=== PATIENT | female | born 1980 | race Caucasian/White ===

== ENCOUNTER 2020-04-08 15:15 | Outpatient (RCR) | payer OTHER, SELFPAY ==
--- NOTE | 2020-03-09 16:33 | PTOPEVAL ---
INITIAL PHYSICAL THERAPY EVALUATION and PLAN OF CARE Thank you for referring Leilani Mark to [facility]. She will be seen in PT 2x/wk x 4 wks. Please review, sign, date and return this plan of care BENITO. I agree with and certify that the following plan of care is medically necessary. Referring Physician Date Admitting Provider: Attending Provider: Barb Fonseca, Referring Provider: *PT Outpatient Evaluation Start: 03/09/20 14:43 Freq: Status: Active Protocol: Document 03/09/20 14:35 RACHID (Rec: 03/09/20 16:17 RACHID [id number]) Therapy Assessment Status Assessment Status Assessment Status Evaluation Outpatient Past Medical History Past Medical History Source of Past Medical History Patient Neurological History Hx Neurological Disorders No Significant History Cardiovascular History Hx Cardiac Disorders No Significant History Respiratory History Hx Respiratory Disorders No Significant History Gastrointestinal History Hx Hernia Yes: Repair - 1999 Genitourinary History Hx Genitourinary Disorders No Significant History Musculoskeletal History Hx Back Pain Yes: upper back, lower back Hematological History Hx Hematological Disorders No Significant History Endocrine History Hx Hypothyroidism Yes Psychosocial History Hx Anxiety Yes Evaluation Information Problem Diagnosis back pain Onset ~ 5 years ago Subjective Information Job - 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 2 years ago - Family moved into a new house - temprapedic bed Wakes up in morning - upper back feels locked - did purchase brace for upper trunk extension - does help - sleeps with it. Once upper back decreased in pain - then lower back began to bother her. Will limit her walking ability. Does have a massage chair - but uses it for trunk extension. Able to fall asleep okay - just doesn' t feel well in the morning. 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 Sits in front of the computer x 10 hrs /days - doesn't really take breaks R handed - has 2 screens on computer - mildly set off to the R side Diagnostic Tests X-Rays For This Problem
--- NOTE | 2020-04-08 17:01 | PTOPEVAL ---
PHYSICAL THERAPY DISCHARGE SUMMARY Thank you for referring Leilani Mark to [facility] [place][Note 2]. She was seen for a total of 9 visits. All goals were met. I agree with Leilani's discharge from PT. Referring Physician Date Admitting Provider: Attending Provider: Barb Fonseca, Referring Provider: *PT Outpatient Evaluation Start: 03/09/20 14:43 Freq: Status: Active Protocol: Document 04/08/20 15:35 RACHID (Rec: 04/08/20 16:59 RACHID [email or web address]) Therapy Assessment Status Assessment Status Assessment Status Discharge Evaluation Information Problem Subjective Information Leilani reports that if she Query Text:As Reported By Patient/ wakes up with back pain she Family will use the foam roller to ease it off. She stated that she hasn't done her HEP the past few days - but feeling good. Now having some R upper cervical discomfort - mother- in-law has been massaging it for her. She continues to use ther ex ball for desk chair and watching her ergonomics with work activities. She was asking about more difficult exercises for La[place] ball and foam roller. Pain Assessment Timing of Pain Assessment Timing of Pain Assessment Assessment Pain Scale Pain Scale Used Numeric (1 - 10) Self Report Pain Assessment Lower Posterior Back Reported Pain Level 0 Lowest Pain Intensity 0 Greatest Pain Intensity 0 Upper Posterior Back Reported Pain Level 1 Lowest Pain Intensity 0 Greatest Pain Intensity 1 Pain Score Pain Score 0,1: Self Report Cervical and Lumbar ROM Cervical ROM Cervical ROM WNL Lumbar ROM Lumbar ROM WNL Palpation Assessment Palpation Palpation in standing - increased symmetry with pelvis and shoulders. WNL for spinal curves. Negative SIJ testing. in prone - sacral, lumbar and thoracic symmetry present - P- A mob - no tenderness at sacrum and lumbar spine. Thoracic spine - mild decreased motion T5,6,7 - mild discomfort also present Thoracic pass
== END 2020-05-24 12:43 | disposition home or self-care (01) ==
LOC: ANHPT 15:15
PROVIDERS: PCP Internal Medicine; Visit Provider Internal Medicine
DX: G89.29 Other chronic pain (principal)
CPT/HCPCS: 97110; 97140; 97161

== ENCOUNTER 2020-09-29 09:11 | Outpatient (CLI) | payer OTHER, SELFPAY ==
--- NOTE | ~2020-09-29 | US_ITS ---
EXAMINATION: US venous doppler LE BI EXAM DATE: 09/29/2020 10:20 INDICATION: Symptomatic varicose veins BLE, venous insufficiency. TECHNIQUE: Multiple grayscale, color flow and Doppler images of the lower extremity venous systems bi laterally were obtained and reviewed. Saphenous venous mapping. The exam was reviewed on 09/29/2020. There is no prior study for comparison. FINDINGS: Right side: The right common femoral, femoral and profunda veins demonstrate normal color flow, respi ratory variation, augmentation and compressibility. Compressibility, color flow confirmed within the right popliteal, posterior tibial, peroneal, and greater saphenous veins. Right Standing Venous Mapping: reflux seconds duration; vein size. Greater saphenous origin: 0 seconds; 2.4 mm. Greater saphenous mid thigh:------ 0 seconds; 3.4 mm. Greater saphenous below knee:--- 0 seconds; 2.0 mm. Lesser saphenous proximally:------ 0 seconds; 2.6 mm. Lesser saphenous distally: Greater than 5 seconds; 1.8 mm. Left side: The left common femoral, femoral and profunda veins demonstrate normal color flow, respira tory variation, augmentation and compressibility. Compressibility, color flow confirmed within the l eft popliteal, posterior tibial, peroneal, and greater saphenous veins. Left Standing Venous Mapping: reflux seconds duration; vein size. Greater saphenous origin: 1 second; 3.7 mm. Greater saphenous mid thigh:------ 0 seconds; 4.6 mm. Greater saphenous below knee:--- 4 seconds; 3.2 mm. Lesser saphenous proximally:------ 0 seconds; 2.2 mm. Lesser saphenous distally: Greater than 5 seconds; 2.8 mm. IMPRESSION: 1. No lower extremity deep venous thrombosis bilaterally. 2. Bilateral venous reflux as above. Reviewed, dictated and finalized at location A. PTIONIST SCHEDULER
== END 2020-09-29 09:12 | disposition home or self-care (01) ==
PROVIDERS: PCP Internal Medicine
DX: I87.2 Venous insufficiency (chronic) (peripheral) (principal)
CPT/HCPCS: 93970

== ENCOUNTER 2022-05-24 12:15 | Outpatient (CLI) | payer OTHER, SELFPAY ==
--- NOTE | ~2022-05-24 | MMUS_ITS ---
EXAMINATION: MM diagnostic tianna BI w el, US breast BI limited HISTORY: Palpable lump in the far outer right breast at the 9:00 location. TECHNIQUE: Craniocaudal, mediolateral, and mediolateral oblique 3-D tomosynthesis images of the [place] ts were performed and synthetic 2-D images were generated. CAD analysis was submitted and interpreted . High resolution limited bilateral breast ultrasound was performed. COMPARISON: None, baseline BREAST PARENCHYMAL COMPOSITION: The breasts are extremely dense, which lowers the sensitivity of mamm ography. FINDINGS: MAMMOGRAPHIC FINDINGS: There is no suspicious mass, calcification, or architectural distortion in either breast to suggest malignancy. An asymmetry of the inner left breast on craniocaudal view does not persist with spot com pression. No mammographic correlate is identified for the reported palpable abnormality of the right breast. ULTRASOUND: There is no evidence of focal abnormal solid or cystic mass in the vicinity of the reported palpable abnormality of the right breast. No suspicious cystic or solid mass is identified with limited ultras ound of the inner left breast. IMPRESSION: 1. No specific mammographic or sonographic correlate is identified for the reported palpable abnormal ity of concern. Further evaluation at this time should be based on clinical assessment. Continued fol low-up physical examination is recommended. 2. Recommend routine screening mammography in one year. BI-RADS Category 1: Negative Reviewed, dictated and finalized at location A. IMPRESSION: 1. No specific mammographic or sonographic correlate is identified for the repo rted palpable abnormality of concern. Further evaluation at this time should be based on clinical assessment. Continued follow-up physical examination is florentino mmended. 2. Recommend routine screening mammography in one year. BI-RADS Category 1: Negative
== END 2022-05-24 12:16 | disposition home or self-care (01) ==
PROVIDERS: PCP Internal Medicine; Visit Provider Nurse Practitioner Obstetrics & Gynecology
DX: N63.10 Unspecified lump in the right breast, unspecified quadrant (principal)
CPT/HCPCS: 76642; 77062; 77066; G0279

== ENCOUNTER 2023-01-26 15:53 | Outpatient (CLI) | payer OTHER, SELFPAY ==
--- NOTE | ~2023-01-26 | US_ITS ---
EXAMINATION: US soft tissue groin RT INDICATION: Right groin lump, concern for hernia TECHNIQUE: Targeted ultrasound is performed in the area of clinical concern. COMPARISON: None available FINDINGS: No sonographically detected inguinal hernia is identified. There are normal-appearing right inguinal lymph nodes. IMPRESSION: 1. No sonographically detected inguinal hernia. Reviewed, dictated and finalized at location F.
== END 2023-01-26 15:54 | disposition home or self-care (01) ==
PROVIDERS: PCP Internal Medicine; Visit Provider Internal Medicine
DX: K40.90 Unilateral inguinal hernia, without obstruction or gangrene, not specified as recurrent (principal)
CPT/HCPCS: 76882

== ENCOUNTER 2023-07-25 10:31 | Outpatient (CLI) | payer OTHER, SELFPAY ==
--- NOTE | ~2023-07-25 | MM_ITS ---
EXAMINATION: MM screening tianna BI w el HISTORY: Screening mammogram TECHNIQUE: Craniocaudal and mediolateral oblique 3-D tomosynthesis images were obtained and synthetic 2-D images were generated. Bilateral rotated lateral CC views. CAD analysis was submitted and interp reted. COMPARISON: 05/24/2022 diagnostic bilateral mammogram and Limited bilateral breast ultrasound examinat ion BREAST PARENCHYMAL COMPOSITION: The breasts are extremely dense, which lowers the sensitivity of mamm ography. FINDINGS: There is no evidence of suspicious mass, calcification, or architectural distortion to sugg est malignancy in either breast. There has been no suspicious interval change. IMPRESSION: 1. No mammographic evidence of malignancy. 2. Recommend routine screening mammography in one year. BI-RADS Category 1: Negative Reviewed, dictated and finalized at location A.
== END 2023-07-25 10:32 | disposition home or self-care (01) ==
LOC: ANHIMG 10:35
PROVIDERS: PCP Internal Medicine; Visit Provider Nurse Practitioner Obstetrics & Gynecology
DX: Z12.31 Encounter for screening mammogram for malignant neoplasm of breast (principal)
CPT/HCPCS: 77063; 77067

== ENCOUNTER 2025-01-14 08:36 | Outpatient (CLI) | payer OTHER, SELFPAY ==
--- NOTE | ~2025-01-14 | MM_ITS ---
EXAMINATION: MM screening tianna BI w el HISTORY: Screening TECHNIQUE: Craniocaudal and mediolateral oblique 3-D tomosynthesis images were obtained and synthetic 2-D images were generated. CAD analysis was submitted and interpreted. COMPARISON: Comparison to multiple prior studies sequentially, with oldest reviewed study dated 05/24. BREAST PARENCHYMAL COMPOSITION: Dense: The breasts are extremely dense, which lowers the sensitivity of mammography. FINDINGS: There is no evidence of suspicious mass, calcification, or architectural distortion to sugg est malignancy in either breast. There has been no suspicious interval change. IMPRESSION: 1. No mammographic evidence of malignancy. 2. Recommend routine screening mammography in one year. BI-RADS Category 1: Negative Reviewed, dictated and finalized at location A.
--- OUTSIDE RECORDS SUMMARY | 2025-01-14 08:59 | XMS_ITS | Data Portability ---
Author Organization [facility] [place] Address [address] [facility] [place] [address] Care Team Providers Care Sprayer Insecticide Name Role Phone BARB GERMAN Primary Care Provider Assessment No assessment recorded. Plan of Treatment Reminders Order Date Submit Date Provider Last Modified By Organization Details Last Modified Time Details Appointments ANY 15 2024 02:30P M ADRIANA STINSON, AUTO OVERHAULER-FREDI Not available Not available Not available Lab TSH, ultra-sen sitive, serum 2022 023 [facility], [address] [place] [address], [facility], [place], [address], 01/10/2023 04:17:40 CMP, serum or plasma 2022 023 [facility], [address] [facility], [facility], [place], [address], 01/10/2023 03:08:57 lipid panel, serum 2022 023 [facility], [address] [facility], [facility], [place], [address], 01/10/2023 03:08:57 CBC w/ auto diff 2022 023 [facility], [address] [facility], [facility], [place], [address], 01/10/2023 03:08:58 HbA1c (hemoglob in A1c), blood 2022 023 [facility], [address] [facility], [address], [place], [address], 01/10/2023 04:17:40 Referral vein specialis t referral 2023 024 [facility], [address], [address], [place], [address], 01/14/2024 12:19:25 vein specialis t referral - Please call pt to schedule appointme nt, Thank you 2020 021 paco Keys MD, [address] [facility], [address], [place], [address], 04/19/2021 16:18:00 vein specialis t referral - Please call patient to schedule - Thank you 2019 020 [facility], [address], [place], [address], 09/20/2020 15:22:34 Procedures None recorded. Surgeries None recorded. Imaging US, groin - SOFT TISSUE GROIN U/S 2022 023 [facility] (Imaging), [address] [facility] [address], [place], [address], 01/29/2023 08:26:07 Medication Orders None recorded. Patient TargetsNo targets recorded. Patient Instructions Encounter Date Encounter Id Patient Instructions Last Modified By Organization Details Last Modified Time 06/09/2020 [id number] f/u in 6 month nsuthan Not available 06/09/2020 14:41:40 12/08/2020 [id number] f/u in 6month nsuthan Not available 0 12/08/2020 14:14:30 01/05/2023 [id number] tdap and f/u prn nsuthan Not availabl e 01/05/2023 15:17:31 12/31/2023 [id number] varicose veins: care instructions nsuthan Not available 12/31/2023 09:31:10 A healthy lifestyle: care instructions nsuthan Not available 12/31/2023 09:31:10 f/u yearly nsuthan Not available 12/30 09:33:15 10/10/2024 [id number] f/u in 3 month nsuthan Not available 10/10/2024 14:59:19 Reason for Referral Vein Specialist Referral for Varicose veins of lower extremity Please call patient to schedule - Thank you Referring Physician: Jennifer German, Internal Medicine, Encounter Date: 06/09/2020 Vein Specialist Referral for Varicose veins of lower extremity Please call pt to schedule appointment, Thank you Referring Physician: Jennifer German, Internal Medicine, Encounter Date: 12/08/2020 Vein Specialist Referral for Varicose veins of lower extremity Referring Physician: Jennifer German, Internal Medicine, Encounter Date: 12/31/2023 Results Created Date Observation Date Name Description Value Unit Range Abnormal Flag Note LastModifiedBy Organization Detail LastModifiedTime 01/10/2001/10/2023 LIPID PANEL cholesterol, total 142.1 mg/dL 140.0- 200.0 Not Available [facility] Department [address] [place], [address], 01/10/2023 03:08:57 01/10/2001/10/2023 LIPID PANEL triglyceride s 92 mg/dL <=150 Not Available [facility] Department [address] [place], [address], 01/10/2023 03:08:57 01/10/2001/10/2023 LIPID PANEL HDL cholesterol 47.4 mg/dL 40.0-1 00.0 Not Available [facility] Department [address] [place], [address], 01/10/2023 03:08:57 01/10/2001/10/2023 LIPID PANEL VLDL cholesterol erich 18.40 mg/dL 5.00-4 0.00 Not Available [facility] Department [address] [place], [address], 01/10/2023 03:08:57 01/10/2004 0101/10/2023 LIPID PANEL LDL chol calc ([facility]) 77.3 Not Available [facility] Department [address] [place], [address], 01/10/2023 03:08:57 01/10/20 23 01/10/2023 COMP. METAB OLIC PANEL (14) glucose 91 mg/dL 65-99 ANION GP 18.0 mmol/ L N OSMOL 281.0 mOsM/ L N REFER ENCE RANGE : 275.0 -301. 0 Not Available [facility] Department [address] [place], [address], 01/10/2023 03:08:57 01/10/20 23 01/10/2023 COMP. METAB OLIC PANEL (14) BUN 17 mg/dL 8-26 Not Available [facility] Department [address] [place], [address], 01/10/2023 03:08:57 01/10/20 23 01/10/2023 COMP. METAB OLIC PANEL (14) creatinine 0.75 mg/dL 0.50-1 .40 Not Available [facility] Department [address] [place], [address], 01/10/2023 03:08:57 01/10/20 23 01/10/2023 COMP. METAB OLIC PANEL (14) eGFR 102 mL/mi n/1.7 3 >=60 Not Available [facility] Department [address] [place], [address], 01/10/2023 03:08:57 01/10/20 23 01/10/2023 COMP. METAB OLIC PANEL (14) BUN/creatini ne ratio 22.7 Not Available [facility] Department [address] [place], [address], 01/10/2023 03:08:57 01/10/20 23 01/10/2023 COMP. METAB OLIC PANEL (14) sodium 140.0 mmol/ L 136.0- 144.0 Not Available [facility] Department [address] [place], [address], 01/10/2023 03:08:57 01/10/20 23 01/10/2023 COMP. METAB OLIC PANEL (14) potassium 4.1 mmol/ L 3.5-5. 3 Not Available [facility] Department [address] [place], [address], 01/10/2023 03:08:57 01/10/20 23 01/10/2023 COMP. METAB OLIC PANEL (14) chloride 99 mmol/ l 101-11 1 below low normal Not Available [facility] Department [address] [place], [address], 01/10/2023 03:08:57 01/10/20 23 01/10/2023 COMP. METAB OLIC PANEL (14) carbon dioxide, total 27.8 mmol/ L 21.0-3 2.0 Not Available [facility] Department [address] [place], [address], 01/10/2023 03:08:57 01/10/20 23 01/10/2023 COMP. METAB OLIC PANEL (14) calcium 9.4 mg/dL 8.2-10 .0 Not Available [facility] Department [address] [place], [address], 01/10/2023 03:08:57 01/10/20 23 01/10/2023 COMP. METAB OLIC PANEL (14) protein, total 6.9 g/dL 6.7-8. 2 Not Available [facility] Department [address] [place], [address], 01/10/2023 03:08:57 01/10/20 23 01/10/2023 COMP. METAB OLIC PANEL (14) albumin 4.6 g/dL 3.5-5. 5 Not Available [facility] Department [address] [place], [address], 01/10/2023 03:08:57 01/10/20 23 01/10/2023 COMP. METAB OLIC PANEL (14) globulin, total 2.3 g/dL 1.5-4. 5 Not Available [facility] Department [address] [place] [address], [address], 01/10/2023 03:08:57 01/10/20 23 01/10/2023 COMP. METAB OLIC PANEL (14) A/G ratio 2.0 Not Available [facility] Department [address] [place] [address], [address], 01/10/2023 03:08:57 01/10/20 23 01/10/2023 COMP. METAB OLIC PANEL (14) bilirubin, total 0.5 mg/dL 0.0-1. 2 Not Available [facility] Department [address] [place] [address], [address], 01/10/2023 03:08:57 01/10/20 23 01/10/2023 COMP. METAB OLIC PANEL (14) alkaline phosphatase 34.3 IU/L 42.0-1 21.0 below low normal Not Available [facility] Department [address] [place] [address], [address], 01/10/2023 03:08:57 01/10/20 23 01/10/2023 COMP. METAB OLIC PANEL (14) AST (SGOT) 19.9 U/L 10.0-4 2.0 Not Available [facility] Department [address] [place] [address], [address], 01/10/2023 03:08:57 01/10/20 23 01/10/2023 COMP. METAB OLIC PANEL (14) ALT (SGPT) 22.5 U/L 10.0-6 0.0 Not Available [facility] Department [address] [place] [address], [address], 01/10/2023 03:08:57 01/10/20 23 01/09/2023 CBC WITH DIFFE RENTI AL/PL ATELE T WBC 4.5 K/uL 3.4-10 .8 Not Available [facility] Department [address] [place], [address], 01/10/2023 03:08:58 01/10/2001/09/2023 CBC WITH DIFFE RENTI AL/PL ATELE T RBC 4.2 M/uL 4.2-5. 4 Not Available [facility] Department [address] [place], [address], 01/10/2023 03:08:58 01/10/20 23 01/09/2023 CBC WITH DIFFE RENTI AL/PL ATELE T hemoglobin 12.6 g/dL 11.5-1 5.5 Not Available [facility] Department [address] [place], [address], 01/10/2023 03:08:58 01/10/20 23 01/09/2023 CBC WITH DIFFE RENTI AL/PL ATELE T hematocrit 38.0 % 36.0-4 8.0 Not Available [facility] Department [address] [place], [address], 01/10/2023 03:08:58 01/10/20 23 01/09/2023 CBC WITH DIFFE RENTI AL/PL ATELE T MCV 90 fL 80-95 Not Available [facility] Department [address] [place], [address], 01/10/2023 03:08:58 01/10/2001/09/2023 CBC WITH DIFFE RENTI AL/PL ATELE T MCH 30 pg 27-32 Not Available [facility] Department [address] [place], [address], 01/10/2023 03:08:58 01/10/2001/09/2023 CBC WITH DIFFE RENTI AL/PL ATELE T MCHC 33 g/dL 32-36 Not Available [facility] Department [address] [place], [address], 01/10/2023 03:08:58 01/10/20 23 01/09/2023 CBC WITH DIFFE RENTI AL/PL ATELE T RDW 12.6 % 11.5-1 4.5 Not Available [facility] Department [address] [place], [address], 01/10/2023 03:08:58 01/10/20 23 01/09/2023 CBC WITH DIFFE RENTI AL/PL ATELE T platelets 247 K/uL 155-37 9 MPV 10.1 FL 8.9-1 2.7 N Not Available [facility] Department [address] [place], [address], 01/10/2023 03:08:58 01/10/20 23 01/09/2023 CBC WITH DIFFE RENTI AL/PL ATELE T neutrophils 57.4 % 40.0-7 4.0 Not Available [facility] Department [address] [place], [address], 01/10/2023 03:08:58 01/10/20 23 01/09/2023 CBC WITH DIFFE RENTI AL/PL ATELE T lymphs 30.4 % 14.0-4 6.0 Not Available [facility] Department [address] [place], [address], 01/10/2023 03:08:58 01/10/20 23 01/09/2023 CBC WITH DIFFE RENTI AL/PL ATELE T monocytes 9.6 % 4.0-12 .0 Not Available [facility] Department [address] [place], [address], 01/10/2023 03:08:58 01/10/20 23 01/09/2023 CBC WITH DIFFE RENTI AL/PL ATELE T eos 1 % 0-5 Not Available [facility] Department [address] [place], [address], 01/10/2023 03:08:58 01/10/20 01/09/2023 CBC WITH DIFFE RENTI AL/PL ATELE T basos 0.2 % 0.0-1. 0 Not Available [facility] Department [address] [place], [address], 01/10/2023 03:08:58 01/10/20 23 01/09/2023 CBC WITH DIFFE RENTI AL/PL ATELE T neutrophils (absolute) 2.6 K/uL 1.4-7. 0 Not Available [facility] Department [address] [place], [address], 01/10/2023 03:08:58 01/10/20 23 01/09/2023 CBC WITH DIFFE RENTI AL/PL ATELE T lymphs (absolute) 1.4 K/uL 0.7-3. 1 Not Available [facility] Department [address] [place] [address], [address], 01/10/2023 03:08:58 01/10/20 23 01/09/2023 CBC WITH DIFFE RENTI AL/PL ATELE T monocytes(ab solute) 0.4 K/uL 0.1-0. 9 Not Available [facility] Department [address] [place], [address], 01/10/2023 03:08:58 01/10/20 23 01/09/2023 CBC WITH DIFFE RENTI AL/PL ATELE T eos (absolute) 0.1 K/uL 0.0-0. 4 Not Available [facility] Department [address] [place], [address], 01/10/2023 03:08:58 01/10/2001/09/2023 CBC WITH DIFFE RENTI AL/PL ATELE T baso (absolute) 0.0 K/uL 0.0-0. 3 Not Available [facility] Department [address] [place], [address], 01/10/2023 03:08:58 01/10/20 23 01/09/2023 CBC WITH DIFFE RENTI AL/PL ATELE T immature granulocytes 1.1 % Not Available [facility] Department [address] [place], [address], 01/10/2023 03:08:58 01/10/20 23 01/09/2023 CBC WITH DIFFE RENTI AL/PL ATELE T immature grans (abs) 0.1 K/uL Not Available [facility] Department [address] [place], [address], 01/10/2023 03:08:58 01/10/20 23 01/09/2023 CBC WITH DIFFE RENTI AL/PL ATELE T NRBC 0 % Not Available [facility] Department [address] [place], [address], 01/10/2023 03:08:58 01/10/20 23 01/10/2023 HEMOG LOBIN A1C hemoglobin A1C 5.0 % 4.8-5. 6 Predi abete s: 5.7 - 6.4 Diabe titi: >6.4 Glyce trev contr ol for adult s with diabe titi: <7.0 Not Available [facility] ([facility]) [address] [facility], [place], [address], 01/10/2023 04:17:40 01/10/2001/10/2023 TSH TSH 1.570 uIU/m L 0.450- 4.500 Not Available [facility] ([facility]) [address] [facility], [place], [address], 01/10/2023 04:17:40 05/09/2005/09/2023 Pap test, thinp rep, refle x hr + lr HPV, cervi erich Pap, thinprep, HPV negati ve Not Available Not Available 17:17:36 09/30/20 20 09/29/2020 US, doppl er, venou s No observ ation record ed. nsuthan [address], [place], [address], 09/30/2020 11:58:24 10/06/2009/29/2020 US, doppl er, venou s No observ ation record ed. [facility] Not Available 2020 12:29:41 05/25/20 22 05/24/2022 MAMMO , scree sarah, digit al, bilat eral No observ ation record ed. [address], [place], [address], 05/29/2022 11:18:58 01/28/20 23 01/26/2023 US, groin No observ ation record ed. [address] [facility], [place], [address], 01/30/2023 16:21:54 07/25/20 23 07/25/2023 MAMMO , scree sarah, digit al, bilat eral No observ ation record ed. [address] [address], [place], [address], 07/27/2023 11:35:22 01/29/2001/29/2024 US, lower extre mity, vascu lar No observ ation record ed. [facility] [address], [place], [address], 02/04/2024 09:20:10 01/29/20 24 01/29/2024 US, doppl er, arter ial No observ ation record ed. [facility] [address], [place], [address], 02/04/2024 09:20:37 Result Notes None recorded. Problems Name Problem SNOMED Code Status Onset Date Resolution Date Notes Provider Name and Address Organization Details Recorded Time Sciatica 61085276 Active Barb German MD Attn: Fly g,[address], [place], [address], [facility] 5 12:22:55 Inguinal pain 470696298 Active Barb German MD Attn: Fly campbell,[address] [facility], [place], [address], [facility] 5 17:11:21 Hypothyroidism 77561744 Active -desiree t ored by [employer] Barb German MD Attn: Fly campbell,[address] [facility], [place], [address], [place] - [facility] 4 09:39:08 Generalized anxiety disorder 25998339 Active -mx ed by [employer] Barb German MD Attn: Fly campbell,[address] [facility], [place], [address], [place] [facility] 4 09:39:23 Pruritic disorder 670244074 Active Barb German MD Attn: Fly campbell,[address] [facility], [place], [address], [place] [facility] 5 14:16:14 Problem Notes None recorded. Procedures Surgical History Date Name Laterality Status Provider Name and Address Organization Details Recorded Time insertion of stent into vein completed Jessica Anne MA [place] 10/10/2024 14:14:15 Hernia Repair completed Linda Silva MA [place] - [facility] 01/29/2015 11:36:46 Imaging Results Imaging Date Name Status LastModified by [facility] Details LastModified Time 09/29/2020 US, doppler, venous completed [address], [address], 09/30/2020 11:58:24 09/29/2020 US, doppler, venous completed [facility] Information not available 10/18/2020 12:29:41 05/24/2022 MAMMO, screening, digital, bilateral completed [address], [address], 05/29/2022 11:18:58 01/26/2023 US, groin completed [address] [address], [place], [address], 01/30/2023 16:21:54 07/25/2023 MAMMO, screening, digital, bilateral completed [facility] [address] [facility] [address], [place], [address], 07/27/2023 11:35:22 01/29/2024 US, lower extremity, vascular completed [facility] [address], [place], [address], 02/04/2024 09:20:10 01/29/2024 US, doppler, arterial completed [facility] [address], [place], [address], 02/04/2024 09:20:37 Procedure Notes None recorded. Medical Equipment None Reported. Allergies No known drug allergies Medications Name Sig Start Date Stop Date Status Note LastModified by Organization Details LastModified Time sertraline hcl 25 mg tabs 11/07 completed Not Available Not Available Not Available metronidazo le vaginal 0.75 % gel 11/07 completed Not Available Not Available Not Available levothyroxi n tab 50mcglevoth yroxine sodium active Not Available Not Available Not Available levothyroxi ne sodium 50 mcg tabs 11/07 completed Not Available Not Available Not Available fluconazole 150 mg tablet 11/07 completed Not Available Not Available Not Available fluconazole 200 mg tablet 01/05 completed Not Available Not Available Not Available metronidazo le 0.75 % (37.5 mg/5 gram) vaginal gel 01/05 completed Not Available Not Available Not Available metronidazo le 500 mg tablet 11/07 completed Not Available Not Available Not Available clopidogrel 75 mg tablet TAKE 1 TABLET BY MOUTH ONCE DAILY active Not Available Not Available No t Available valacyclovi r 500 mg tablet TAKE 4 TABLETS BY MOUTH AT ONSET ON SYMPTOMS, TAKE 4 MORE 12 HOURS LATER active Not Available Not Available No t Available levothyroxi ne 75 mcg tablet TAKE 1 TABLET BY MOUTH ONCE DAILY DIRECTED active Not Available Not Available No t Available Mobic 15 mg tablet Take 1 tablet every day by oral route as needed with meal for pain. 11/07 completed Not Available Not Available Not Available sertraline 25 mg tablet TAKE 1 TABLET BY MOUTH EVERY DAY 01/05 completed Not Available Not Available Not Available Euthyrox 50 mcg tablet TAKE 1 TABLET BY MOUTH ONCE DAILY 01/05 completed Not Available Not Available Not Available clobetasol 0.05 % topical ointment 10/10 completed Not Available Not Available Not Available ibuprofen 600 mg tablet 11/07 completed Not Available Not Available Not Available clotrimazol e 1 % topical cream APPLY TO THE AFFECTED AND SURROUNDI NG AREAS OF SKIN BY TOPICAL ROUTE 2 TIMES PER DAY IN THE MORNING AND EVENING 11/07 completed Not Available Not Available Not Available sertraline 50 mg tablet TAKE 1 TABLET BY MOUTH ONCE DAILY active Not Available Not Available No t Available amoxicillin 875 mg-potassiu m clavulanate 125 mg tablet 11/07 completed Not Available Not Available Not Available Vitals Date Recorded Body height Body mass index (BMI) Body weight Heart rate Respiratory rate Body temperature Oxygen saturation Oxygen saturation in Arterial blood by Pulse oximetry Systolic blood pressure Diastolic blood pressure Provider Name and Address Organization Details Last Updated DateTime 3 180.34 cm 18.6 kg/m2 62311.3 g 96 /min 12 /min 98.4 [degF] 99 % 99 % 102 mm[Hg] 64 mm[Hg] Paige Millan MA [place] - [facility] 3 14:50:48 Date Recorded Body height Body mass index (BMI) Body weight Heart rate Respiratory rate Body temperature Oxygen saturation Oxygen saturation in Arterial blood by Pulse oximetry Systolic blood pressure Diastolic blood pressure Provider Name and Address Organization Details Last Updated DateTime 4 180.34 cm 20.3 kg/m2 63032.7 7 g 67 /min 14 /min 97.2 [degF] 99 % 99 % 97 mm[Hg] 68 mm[Hg] Dee Dee Greenfield [place] - [facility] 4 09:16:13 Date Recorded Body height Body mass index (BMI) Body weight Body temperature Oxygen saturation Oxygen saturation in Arterial blood by Pulse oximetry Heart rate Systolic blood pressure Diastolic blood pressure Provider Name and Address Organization Details Last Updated DateTime 4 180.34 cm 18.9 kg/m2 35323.8 4 g 97.5 [degF] 99 % 99 % 75 /min 99 mm[Hg] 67 mm[Hg] Jessica Anne [place] [facility] 4 14:08:44 Social History Question Answer Notes LastModified by Organizat ion Details LastModified Time Tobacco Smoking Status Never Smoker Linda Silva BRANDO null, [place] [facility] 01/29/2015 11:36:47 Do You Have An Advance Directive? No Information not available 01/05/2023 What Is Your Level Of Alcohol Consumption? None Information not available 01/05/2023 Are You Blind Or Do You Have Difficulty Seeing? No [email or web address] Information not available 12/08/2020 What Is Your Level Of Caffeine Consumption? Moderate Coffee Information not available 03/02/2020 How Much Tobacco Do You Chew? None Information not available 03/02/2020 In The 14 Days Before Symptom Onset, Have You Had Close Contact With A Laboratory-confi rmed COVID-19 While That Case Was Ill? No Information not available 03/02/2020 In The 14 Days Before Symptom Onset, Have You Had Close Contact With A Person Who Is Under Investigation For COVID-19 While That Person Was Ill? No Information not available 03/02/2020 Have You Been To An Area Known To Be High Risk For COVID-19? No Information not available 03/02/2020 Are You Currently Employed? Yes [email or web address] Information not available 12/08/2020 Are You Deaf Or Do You Have Serious Difficulty Hearing? No [email or web address] Information not available 12/08/2020 What Type Of Diet Are You Following? REGULAR Information not available 03/02/2020 Which Illicit Or Recreational Drugs Have You Used? Denies Information not available 03/02/2020 Do You Or Have You Ever Used E-cigarettes Or Vape? Current User Of Electronic Cigarettes 2mg Nicotine Information not available 12/31/2023 Education 4 Year College Information not available 03/02/2020 What Is The Highest Grade Or Level Of School You Have Completed Or The Highest Degree You Have Received? [id number] Information not available 12/08/2020 What Is Your Occupation? [employer] Information not available 03/02/2020 Are There Any Guns Present In Your Home? No Information not available 03/02/2020 Marital Status Informatio n not available 03/02/2020 What Was The Date Of Your Most Recent Tobacco Screening? 10/10/2024 Information not available 10/10/2024 Performs Monthly Self-breast Exam? Yes Information not available 03/02/2020 What Is Your Relationship Status? [email or web address] Information not available 12/08/2020 Do You Use Your Seat Belt Or Car Seat Routinely? Yes [email or web address] Information not available 12/08/2020 Seat Belts Used Routinely Yes Information not available 03/02/2020 Do You Have Smoke And Carbon Monoxide Detectors In Your Home? Yes [email or web address] Information not available 12/08/2020 Do You Or Have You Ever Used Smokeless Tobacco? Never Used Smokeless Tobacco Information not available 03/02/2020 General Stress Level Low Information not available 03/02/2020 Do You Feel Stressed (tense, Restless, Nervous, Or Anxious, Or Unable To Sleep At Night)? [id number] [email or web address] Information not available 12/08/2020 Do You Use Any Illicit Or Recreational Drugs? No [email or web address] Information not available 12/08/2020 Do You Use Sunscreen Routinely? Yes Information not available 03/02/2020 Has Tobacco Cessation Counseling Been Provided? Yes Information not available 12/31/2023 On What Date Was Tobacco Cessation Counseling Provided? 10/10/2024 Information not available 10/10/2024 Do You Or Have You Ever Used Any Other Forms Of Tobacco Or Nicotine? No Information not available 12/31/2023 Sex: Female Functional Status Question Answer Note LastModified by Organizat ion Details LastModified Time Are you able to care for yourself? Yes Information not available 12/08/2020 What is your exercise level? Occasional Information not available 03/02/2020 Mental Status None recorded. Family History Relationship Description Onset Age of this Age Resolved Age Notes LastModified by Organization Details LastModified Time Father Depressive disorder Not available 2019 08:58:05 Medical History Condition Response Coronary Artery Disease N Other N Atrial Fibrillation N High Blood Pressure N Kidney or Bladder Problems N Thyroid Problems Y GI Problems N Depression N COPD N Blood Clots N Have you had a mammogram in the last yea r? N Skin Problems N Anemia Heart Attack (AR) N Anxiety Disorder N Diabetes N Muscle, Joint, or Bone Problems N Seizures/Epilepsy N Acid Reflux (GERD) N Cancer N Stroke N Asthma N Allergies N High Cholesterol Y Hepatitis N Liver Disease N Headaches N Heart Failure N Osteoporosis N Gynecological History Statement/Question Response Flow Light Date of LMP 09/16/2024 Menses Monthly Y Duration of Flow (days) 3 Current Control Method IUD Age at First Child 33 LMP Approximate Obstetrics History GPAL:G 4 P 2 0 2 2 Type Value Full Term 2 Induced 2 Living 2 Total 4 Immunizations Vaccine Type Date Status Note Provider Nam e and Address Organization Details Recorded Time Influenza, split virus, quadrivalent, preservative 8 completed Not Available [facility]01[facility]2019 02:49:48 Tdap 3 completed Barb German MD Attn: [address] [place], [address], [facility] 01/05/2023 15:57:25 Influenza, split virus, quadrivalent, preservative 5 completed Not Available Formerly [facility] 11/01/2019 02:49:11 Past Encounters Encounter ID Performer Location Encounter Start Date Encounter Closed Date Diagnosis/Indication Diagnosis SNOMED-CT Code Diagnosis ICD10 Code Diagnosis Note [id number] Delores Maxwell Gomez (Adult Med) [address] [place] [address] 01/29/2015 11:18:35 01/29/2015 13:03:14 Sciatica 16050801 with normal sensation and reduced patellar reflex on L/side Mobic prn back exercises Heat therapy Consider imaging if problem continues [id number] Patricia AGOSTO (Adult Med) [address] [place] [address] 05/28/2015 16:11:19 05/31/2015 14:11:42 Inguinal pain 921478529 did not see any hernia, possibly related to running pt is reassured heat therapy and stretches [id number] [facility] [address] [place] [address] 08/19/2015 11:37:25 08/20/2015 11:04:33 Hypothyroidism 19924484 E03.8 continue same check labs Generalize d anxiety disorder 02012610 F41.1 on Zoloft per [employer] Pruritic disorder 437185 002 L29.8 on Back -possibly fungal infection Administra tion of influenza vaccine 72370428 Z23 [id number] [facility] [address] [facility] [place] [address] 11/07/2017 08:19:05 11/08/2017 11:49:51 Administration of influenza vaccine 42908555 Z23 Hypothyroidism 41891327 E03.8 continue thyroid pill per Gyncheck labs Generalize d anxiety disorder 01684572 F41.1 on Zoloft per [employer] Adult heal th examination 260146578 Z00.00 healthy diet and exercise discussed with pt.pt to check with [employer] whether she received tdap at their office [id number] [facility] [address] [place] [address] 03/02/2020 08:12:40 03/03/2020 17:16:09 Chronic back pain 114049888 G89.29 heat therapy /exercises -pt wants to go for PT.Decline d meds . Hypothyroidism 64232495 E03.8 continue thyroid pill per Gyncheck labs Generalize d anxiety disorder 16333386 F41.1 on Zoloft per [employer] [id number] [facility] [address] [facility] [place] [address] 06/09/2020 08:21:41 2020 10:41:42 Varicose veins of lower extremity 12653727 I83.893 with discomfort of legs.pt wants to see vascular specialist and also recommende d by her [employer] per pt. Generalize d anxiety disorder 44598620 F41.1 on Zoloft per [employer] Hypothyroidism 24445885 E03.8 continue thyroid pill per Gyncheck labs [id number] [facility] [address] [facility] [place] [address] 12/08/2020 08:23:59 12/09/2020 08:10:26 Hypothyroidism 14325462 E03.8 continue thyroid pill per Gyncheck labs Generalize d anxiety disorder 00012325 F41.1 on Zoloft per [employer] Varicose v eins of lower extremity 03226466 I83.893 with discomfort of legs.pt wants to see vascular specialist and also recommende d by her [employer]ging per pt. [id number] [facility] [address] [facility] [place] [address] 01/05/2023 14:31:15 01/08/2023 10:16:06 Adult health examination 506489317 Z00.00 healthy diet and exercise discussed with pt.pt to check with [employer] whether she received tdap at their office Administra tion of diphtheria, pertussis, and tetanus vaccine 540445169 Z23 Hypothyroidism 95928287 E03.8 continue thyroid pill per Gyncheck labs Generalize d anxiety disorder 18243536 F41.1 on Zoloft per [employer] Right inguinal hernia 23 9997666 K40.90 -pt is doing weight training [id number] [facility] [address] [place] [address] 12/31/2023 09:00:10 01/03/2024 16:09:49 Adult health examination 155101249 Z00.00 healthy diet and exercise discussed with pt.pt to check with [employer] whether she received tdap at their office Varicose v eins of lower extremity 79218818 I83.893 with pain and numbness of legs.pt wants to see vascular specialist and also recommende d by her [employer] per pt. Hypothyroidism 63957795 E03.8 continue thyroid pill per [employer]-monito red by her [employer] Generalize d anxiety disorder 00776375 F41.1 on Zoloft per Gynf/u with [employer] [id number] MD [facility] (Adult Med) [address] [facility] [place] [address] 10/10/2024 14:01:35 10/13/2024 09:54:23 Varicose veins of lower extremity 21560116 I83.893 with pain and numbness of legs.pt wants to see vascular specialist and also recommende d by her [employer] per pt. Hypothyroidism 95258711 E03.8 continue thyroid pill-monit ored by her [employer] in the past - labs reviewed with pt- will manage thyroid level in future Generalize d anxiety disorder 14593707 F41.1 -stable on Zoloft Health Concerns Section Related Observation LastModified by Organization Detai ls LastModified Time None Recorded Concern Status LastModified by Organization Details LastModified Time None Recorded Advance Directives Directive N: Payers Encounter Date Sequence Insurance Name Policy Number Policy Kramer Covered Member ID Kramer Member ID Guarantor Name 06/09/2020 1 [facility] PRIOR TO 04/14/2021 (MEDICAID REPLACEMENT - HMO) Leilani Mark [id number] Leilani Mark 12/08/2020 1 [facility] PRIOR TO 04/14/2021 (MEDICAID REPLACEMENT - HMO) Leilani Mark [id number] Leilani Mark 01/05/2023 1 [facility] ON OR AFTER 04/14/21 (MEDICAID REPLACEMENT - HMO) Leilani Mark [id number] Leilani Mark 12/31/2023 1 [facility] ON OR AFTER 04/14/21 (MEDICAID REPLACEMENT - HMO) Leilani Mark [id number] Leilani Mark 10/10/2024 1 [facility] ON OR AFTER 04/14/21 (MEDICAID REPLACEMENT - HMO) Leilani Mark [id number] Leilani Mark Notes Date Note Type Note Provider Name and Address Organization Details Recorded Time 06/09/2020 text/html Back PainReporte d bypatient.Location :pain is not radiating; upper back and lower back Quality:dull Severity:moderate (5-7) Duration:chronic Context:prior back problems Aggravating Factors:movement/p ositioning Associated Symptoms:no weak limbs; no numbness of the legs/feet; no tingling Phone visit due to Covid-19.pt wants to see vascular surgeon for varicose veins . pt has discomfort in legs and also recommended by her [employer].Pt also sees [employer] who has been prescribing thyroid pill and sertraline for her , taking meds as prescribed. Barb German MD Attn: [address]ing[address] , [place], [address], [place] [facility] 06/09/2020 15:50:07 12/08/2020 text/html Phone visit due to Covid-19.pt wants to see vascular surgeon for varicose veins . pt has discomfort in legs and also recommended by her [employer].pt wants referral again to vascular surgeon.Pt also sees [employer] who has been prescribing thyroid pill and sertraline for her , taking meds as prescribed. Barb German MD Attn: [address]ing[address] [facility], [place], [address], [facility] 12/08/2020 14:16:18 01/05/2023 text/html pt is here for yearly physical, pt thinks she has R/inguinal hernia ,started noticing few months ago . pt is doing weight trainingPt also sees [employer] who has been prescribing thyroid pill and sertraline for her , taking meds as prescribed. Barb German MD Attn: [address]ing[address] [facility], [place], [address], [facility] 01/05/2023 16:00:24 12/31/2023 text/html pt is here for yearly physicalPt also sees [employer] who has been prescribing thyroid pill and sertraline for her , taking meds as prescribed pt wants to see vascular surgeon for varicose veins . pt has discomfort in legs and also recommended by her [employer].pt wants referral again to vascular surgeon. Barb German MD Attn: Accounting[address] [facility], [place], [address], [place] [facility] 12/31/2023 09:41:38 10/10/2024 text/html pt is here for f/uPt also sees [employer] who has been prescribing thyroid pill and sertraline for her , taking meds as prescribed. pt was told to have her pcp to manage her thyroid and anxiety med . pt denied any mood swings and med helps and wanted to continue .pt also noticed some thinning of hair as well pt sees vascular surgeon for varicose veins -s/p sx and was on plavix . pt is off of plavix now Barb German MD Attn: Accounting[address] [place], [address], [facility] 10/10/2024 15:00:38 OBGyn Episode No OBEpisode recorded.
--- OUTSIDE RECORDS SUMMARY | 2025-01-14 08:59 | XMS_ITS | CONTINUITY OF CARE DOCUMENT ---
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 active Noble Fabian Leg pain, bilateral active Noble Sharma MD Varicose veins active Noble Sharma MD Leg edema active Noble Sharma MD Venous insufficiency active Noble Sharma MD ENCOUNTERS Date Type Provider Location Encounter Diag nosis - In-person encounter Office Visit Noble Sharma MD [facility] - In-person encounter Office Visit Noble Sharma MD [facility] Venous insufficiency - In-person encounter Office Visit Noble Sharma MD [facility] Cardiology examinationLeg pain, bilateralVaricose veinsLeg edema VITAL SIGNS Date Observation Value Provider Body Mass Index (Ratio) 19.80 kg/m2 Noble Sharma MD blood pressure, diastolic 63 mm[Hg] Ja rret blood pressure, systolic 90 mm[Hg] Jar ret pulse rate 63 /min Yg blood pressure, cuff size regular Ja [facility] respiratory rate E&M 14 /min oxygen saturation, oximetry 98 % weight E&M 142 [lb_av] height E&M 71 [in_i] Yg Body Mass Index (Ratio) 19.66 kg/m2 [facility] jose Sandra blood pressure, diastolic 55 mm[Hg] Carolina sakina Santosh blood pressure, systolic 96 mm[Hg] Farida dennis Santosh pulse rate 72 /min Radha Santosh oxygen saturation, oximetry 98 % Radha Santosh weight E&M 141 [lb_av] Radha Santosh blood pressure, cuff size large An sakina Santosh height E&M 71 [in_i] Radha Santosh Body Mass Index (Ratio) 20.50 kg/m2 [facility] jose [facility] blood pressure, diastolic 60 mm[Hg] Cecy nkLog blood pressure, systolic 97 mm[Hg] Crystal og blood pressure, cuff size regular Arturo [facility] blood pressure, diastolic 60 mm[Hg] Arturo [facility] blood pressure, systolic 97 mm[Hg] [facility] pulse rate 75 /min Yg height E&M 71 [in_i] Yg respiratory rate E&M 16 /min oxygen saturation, oximetry 98 % weight E&M 147 [lb_av] Yg ALLERGIES No Known Drug Allergies HISTORY OF MEDICATION USE Medication Status Instructions Dates Provider Indications Com ments Plavix 75 mg tablet active Take 1 table t by mouth once a day Brisa Laguna levothyroxine 75 mcg tablet active Take 1 tablet by mouth once a day sertraline 50 mg tablet active Take 1 tablet by mouth once a day SOCIAL HISTORY Date Observation Value Provider cigarette use yes Noble Sharma MD smoking status Former smoker Noble Sharma MD cigarette use yes Noble Sharma MD smoking status Former smoker Noble Sharma MD cigarette use yes Yg mikal ay smoking status Former smoker Yg rday INSURANCE PROVIDERS Payer name Policy type / Coverage type [employer] republic[employer] MEDICA[employer] (2) Medicaid [id number] ADVANCE DIRECTIVES Name Date DISCUSSED - NO DECISION MADE TREATMENT PLAN Date Name Performer Cardiology:Venograph y/ IVUS revealed signifant compression of the left illiac vein and sucesful treated with stent. Pt had some back pain post op which is not proceduring and reports improvement of leg pain but would still like Venaseal done. This visit has been a part of the consistent, comprehensive, and ongoing management of the chronic medical condition(s) listed above for the patient. 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 Pt had some back pain post op which is not proceduring and reports improvement of leg pain but would still like Venaseal done. Noble Sharma MD Cardiology Noble Sharma MD Cardiology Noble Sharma MD Cardiology:Venous du plex showed insufficencny of right and left GSVs. Pt statesshe is very symptomatic and she would like an intervention. We had a long discussion regarding risks and benefits of iliac vein angiography/IVUS with possible stenting. We also discusssed Venaseal. Pt would like to proceed with the procedure. Noble Sharma MD Cardiology:Venous du plex showed insufficencny of right and left GSVs. Pt statesshe is very symptomatic and she would like an intervention. We had a long discussion regarding risks and benefits of iliac vein angiography/IVUS with possible stenting. We also discusssed Venaseal. Pt would like to proceed with the procedure. Noble Sharma MD Cardiology:Pt compla ins of varicose veins causing numbness, mid swelling, and discomfort in legs. She tried support stockings without success. Will obtain arterial and venous duplex and recommend treatment option based on results Noble Sharma MD Cardiology:Pt compla ins of varicose veins causing numbness, mid swelling, and discomfort in legs. She tried support stockings without success. Will obtain arterial and venous duplex and recommend treatment option based on results Noble Sharma MD Cardiology:Pt compla ins of varicose veins causing numbness, mid swelling, and discomfort in legs. She tried support stockings without success. Will obtain arterial and venous duplex and recommend treatment option based on results Noble Sharma MD Date Name PROTHROMBIN TIME WIT H INR LIPID PANEL CBC (INCLUDES DIFF/P LT) BASIC METABOLIC PANE L W/EGFR Venogram w/ IVUS - G C Venous Doppler Bilat eral LE - Reflux Arterial Duplex Bi-L ower EX HISTORY OF PROCEDURES Procedure Date Procedure Name Provider Procedure Notes S tatus Complex e/m visit add on Noble Sharma MD completed EKG Noble Sharma MD completed
--- OUTSIDE RECORDS SUMMARY | 2025-01-14 08:59 | XMS_ITS | Clinical Summary ---
Author Organization [facility] Address [address] [place] [address] Care Team Providers Care Guest Attendant Name Role Phone Barb Fonseca MD Primary Care Provider [phone] Allergies No known active allergies Medications sertraline (ZOLOFT) 50 mg tablet Take 1 tablet (50 mg total) by mouth nightly Active levothyroxine (SYNTHROID) 75 mcg tablet Take 1 tablet (75 mcg total) by mouth daily 01/28/2024 Active valACYclovir (VALTREX) 500 mg tablet TAKE 4 TABLETS BY MOUTH AT ONSET ON SYMPTOMS, TAKE 4 MORE 12 HOURS LATER 01/03/2024 Active docosahexaenoic acid/epa (FISH OIL ORAL) Take 700 mg by mouth nightly Active FOLIC ACID ORAL Take 1 tablet by mouth nightly Active vitamin D3/vitamin K2, MK4, (K2 PLUS D3 ORAL) Take 1 tablet by mouth nightly Active TURMERIC ORAL Take 1 capsule by mouth nightly Active magnesium oxide 400 mg magnesium capsule Take 1 capsule by mouth nightly Active clopidogreL (PLAVIX) 75 mg tablet Take 1 tablet (75 mg total) by mouth daily 30 tablet 11 04/11/2024 5 Active Active Problems Problem Noted Date Diagnosed Date Venous insufficiency of leg 03/21/2024 Leg pain 03/21/2024 Generalized anxiety disorder 09/20/2020 Hypothyroidism 09/20/2020 Inguinal pain 09/20/2020 Pruritic disorder 09/20/2020 Sciatica 09/20/2020 Symptomatic varicose veins of both lower extremi ties 09/20/2020 Venous insufficiency 09/20/2020 Surgical History Surgery Date Site/Laterality Comments HERNIA REPAIR Medical History Medical History Date Comments Hypothyroidism Anxiety Venous insufficiency Headache Venous insufficiency of leg Family History Medical History Relation Name Comments Cirrhosis Father Depression Father Cancer Mother Relation Name Status Comments Father Mother Social History Tobacco Use Types Packs/Day Years Used Date Smoking Tobacco: Every Day Vaping Smokeless Tobacco: Never Tobacco Cessation:Ready to Q uit: No; Counseling Given: Yes AUDIT-C Answer Date Recorded Q1: How often do you have a drink containing alcohol? Never 04/11/2024 Q2: How many drinks containi ng alcohol do you have on a typical day when you are drinking? Patient does not drink Q3: How often do you have si x or more drinks on one occasion? Never 04/11/2024 Personal Safety Answer Date Recorded Have you ever been in or are you currently in a harmful physical or emotional relationship or is someone making you feel afraid or unsafe? 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 Gender Identity Not on file Sexual Orientation Not on file Obstetrics History Last Filed Vital Signs Vital Sign Reading Time Taken Comments Blood Pressure 98/55 04/11/2024 1:42 PM CDT Pulse 55 04/11/2024 1:42 PM CDT Temperature 36.6 C (97.9 F) 04/11/2024 9:48 AM CDT Respiratory Rate 18 04/11/2024 9:48 AM CDT Oxygen Saturation 96% 04/11/2024 1:42 PM CDT Inhaled Oxygen Concentration - - Weight 62.6 kg (138 lb) 04/11/2024 9:48 AM CDT Height 180.3 cm (5' 11 ) 04/11/2024 9:48 AM CDT Body Mass Index 19.25 04/11/2024 9:48 AM CDT Plan of Treatment Health Maintenance Due Date Last Done Comments Cervical Cancer Screening 1980 Depression Screening 1980 Hepatitis C Screening 1980 Varicella Vaccines (1 of 2 - 13+ 2-dose series) 1993 Hepatitis B Screening 1998 Regular Well Visit/Exam 18-64 1998 Pneumococcal vaccine <65 (1 of 2 - PCV) 1999 Breast Cancer Screening-Mammogram 05/25/2023 05/25/2022 Covid-19 Vaccine ( season) 2024 11/20/2023, 07/18/2022, 10/25/2021, Additional history exists Influenza Vaccine (Season Ended) 2025 07/18/2022, 11/07/2017, 08/20/2015 DTaP/Tdap/Td Vaccine (2 - Td or Tdap) 01/05/2033 01/05/2023 HPV Vaccines Aged Out No longer eligi ble based on patient's age to complete this topic Medical Devices Implanted Type Area Clinical Trial Educator Device Identifier Shelf Expiration Date Model / Serial / Lot Drop Messages Stent Venous Wall [id number] - [id number] Implanted:Qty: 1 on 04/11/2024 by Noble Sharma MD at [facility] Drop Messages 01/03/2025 [id number] / / [id number] Insurance [facility] Advance Directives For more information, please contact: [phone] * Full Code (Latest Code Status on File) Date Activated Date Inactivated Comments 04/11/2024 12:57 PM 04/11/2024 6:47 PM Care Teams Guest Attendant Relationship Specialty Start Date End Date Barb Fonseca MD [address] [place], [place] [address] PCP - General Internal Medicine 03/13/24
--- OUTSIDE RECORDS SUMMARY | 2025-01-14 08:59 | XMS_ITS | Clinical Summary ---
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
--- OUTSIDE RECORDS SUMMARY | 2025-01-14 08:59 | XMS_ITS | Clinical Summary ---
Author Organization [facility] Address [address] [place] [address] Care Team Providers Care Billing Customer Service Representative Name Role Phone Unavailable Primary Care Provider Unavailabl e Source Comments [facility],non-owned Affiliates and Associated Physician Practices is amultiple site organization consisting of ambulatory clinics and hospital sitesin [place], [place], [place] and [place]. This disclosure is being madepursuant to the Care Everywhere program and may not contain all information available regarding this patient. Last updated 18.[facility] [employer] Allergies No known active allergies Medications * Be aware that medications may not be up to date on this document. Alwaysverify current medications with the patient. Medication Sig Dispensed Refills Start Date End Date Status levothyroxine (SYNTHROID) 50 MCG tablet levothyroxine 50 mcg tablet Active sertraline (ZOLOFT) 25 MG tablet sertraline 25 mg tablet Active Active Problems Problem Noted Date Diagnosed Date Generalized anxiety disorder 09/20/2020 Hypothyroidism 09/20/2020 Inguinal pain 09/20/2020 Pruritic disorder 09/20/2020 Sciatica 09/20/2020 Symptomatic varicose veins of both lower extremi ties 09/20/2020 Venous insufficiency 09/20/2020 Family History Medical History Relation Name Comments Cirrhosis Father Cancer - Other Mother Relation Name Status Comments Father Mother Social History Tobacco Use Types Packs/Day Years Used Date Smoking Tobacco: Never Smokeless Tobacco: Never Alcohol Use Standard Drinks/Week Comments Yes 0 (1 standard drink = 0.6 oz pur e alcohol) rarely Sex and Gender Information Value Date Recorded Sex Assigned at Not on file Gender Identity Not on file Sexual Orientation Not on file Last Filed Vital Signs Vital Sign Reading Time Taken Comments Blood Pressure 123/69 09/20/2020 1:27 PM SURVEY TECHNOLOGIST Pulse 76 09/20/2020 1:27 PM SURVEY TECHNOLOGIST Temperature 36.3 C (97.3 F) 09/20/2020 1:27 PM SURVEY TECHNOLOGIST Respiratory Rate 20 09/20/2020 1:27 PM SURVEY TECHNOLOGIST Oxygen Saturation - - Inhaled Oxygen Concentration - - Weight 62.1 kg (137 lb) 09/20/2020 1:27 PM SURVEY TECHNOLOGIST Height 177.8 cm (5' 10 ) 09/20/2020 1:27 PM SURVEY TECHNOLOGIST Body Mass Index 19.66 09/20/2020 1:27 PM SURVEY TECHNOLOGIST Plan of Treatment Health Maintenance Due Date Last Done Comments LIPID TESTING 1980 MAMMOGRAM 1980 PAP SMEAR 1980 HIV SCREENING 1995 HEPATITIS C SCREENING 06/11/1998 DTAP/TDAP/TD VACCINES (1 - Tdap) 1999 HEPATITIS B VACCINE (1 of 3 - 19+ 3-dose series) 1999 COVID-19 VACCINE (1 - 2023-2 5 season) 2024 INFLUENZA VACCINE (#1) 2024 8, 08/20/2015 DEPRESSION SCREENING 10/15/2024 ZOSTER VACCINE (1 of 2) 2030 HIB VACCINE Aged Out No longer eligi ble based on patient's age to complete this topic HPV VACCINE Aged Out No longer eligi ble based on patient's age to complete this topic MENINGOCOCCAL (Group B) VACCINE SHARED DECISION-MAKING Aged Out No longer eligible based on patient's age to complete this topic MENINGOCOCCAL GROUPS A/C/Y/W VACCINE Aged Out No longer eligible b ased on patient's age to complete this topic PNEUMOCOCCAL VACCINE Aged Out No long er eligible based on patient's age to complete this topic
--- OUTSIDE RECORDS SUMMARY | 2025-01-14 08:59 | XMS_ITS | Data Portability ---
Author Organization [facility] Cook Address [address] [place] [address] Care Team Providers Care Piano Technician Name Role Phone NELY JETER Primary Care Provider HUMA GERMAN Primary Care Provider Assessment Encounter Date Assessment Date Assessment LastModified by Organization Details LastModified Time 05/10/2021 05/10/2021 Annual gynecological exam performed. Patient will come back in a year unless there are new symptoms. Not available 05/10/2021 16:33:03 05/11/2022 05/11/2022 Annual gynecological exam performed. Patient will come back in a year unless there are new symptoms. Not available 05/11/2022 09:43:38 05/09/2023 05/09/2023 Annual gynecological exam performed. Patient will come back in a year unless there are new symptoms. Not available 05/09/2023 17:18:31 05/22/2024 05/22/2024 Annual gynecological exam performed. Patient will come back in a year unless there are new symptoms. [email or web address] Not available 05/21/2024 17:13:59 Plan of Treatment Reminders Order Date Submit Date Provider Last Modified By Organization Details Last Modified Time Details Appointments None recorded . Lab CMP, serum or plasma 2023 024 [facility] (Lab), [address], [place], [address], 4 03:12:51 lipid panel, blood 2023 024 [facility] (Lab), [address], [place], [address], 4 03:12:52 CBC w/ auto diff 2023 024 [facility] (Lab), [address], [place], [address], 4 03:12:50 HbA1c (hemoglo bin A1c), blood 2023 024 [facility] (Lab), [address], [place], [address], 4 03:12:53 TSH, serum or plasma 2023 024 [facility] (Lab), [address], [place], [address], 4 03:12:51 25-hydro xyvitami n D2 + 25-hydro xyvitami n D3, QN, serum or plasma 2023 024 [facility] (Lab), [address], [place], [address], 4 03:12:52 HbA1c (hemoglo bin A1c), blood 2022 023 [facility] (Lab), [address], [place], [address], 3 06:38:03 CBC w/ auto diff 2022 023 [facility] (Lab), [address], [place], [address], 3 06:38:03 CMP, serum or plasma 2022 023 [facility] (Lab), [address], [place], [address], 3 11:20:26 lipid panel, blood 2022 023 [facility] (Lab), [address] [facility], [place], [address], 3 06:38:04 TSH, serum or plasma 2022 023 [facility] (Lab), [address] [facility], [place], [address], 3 11:20:27 vitamin D, 25-hydro xy, total, serum 2022 023 [facility] (Lab), [address] [facility], [place], [address], 3 11:20:27 iron + TIBC + ferritin , serum 2022 023 [facility] (Lab), [address] [facility], [place], [address], 3 06:38:05 vitamin D, 25-hydro xy, total, serum [address] (Lab), [address] [facility], [place], [address], 2 15:12:52 lipid panel, blood [address] (Lab), [address] [facility], [place], [address], 2 15:12:52 HbA1c (hemoglo bin A1c), blood [address] (Lab), [address] [place], [address], 2 15:12:52 CMP, serum or plasma [address] (Lab), [address] [facility], [place], [address], 15:12:52 CBC w/ auto diff [address] (Lab), [address] [facility], [place], [address], 15:12:52 TSH, serum or plasma [address] (Lab), [address] [facility], [place], [address], 15:12:52 CBC w/ auto diff [address] (Lab), [address] [facility], [place], [address], 18:07:11 lipid panel, blood [address] (Lab), [address] [facility], [place], [address], 18:07:11 CMP, serum or plasma [address] (Lab), [address] [facility], [place], [address], 11:55:14 TSH, serum or plasma [address] (Lab), [address] [facility], [place], [address], 11:55:14 vitamin D, 25-hydro xy, total, serum [address] (Lab), [address] [place], [address], 11:55:14 HbA1c (hemoglo bin A1c), blood [address] (Lab), [address], [place], [address], 18:07:11 iron + TIBC + ferritin , serum [address] (Lab), [address], [place], [address], 18:07:11 vitamin B12, serum [address] (Lab), [address], [place], [address], 11:55:14 Referral None recorded . Procedures None recorded . Surgeries None recorded . Imaging MAMMO, screenin g, digital, bilatera l [address] [facility], [address], [place], [address], 4 04:04:13 MAMMO, diagnost ic, digital, bilatera l [address], [address] [place] [address] [place] [address], [address], 4 16:14:19 US, breast, unilater al, complete [address], [facility] [address] [place] [address], [address], 4 16:14:19 US, breast, unilater al [address], [address], [place], [address], 2 12:29:22 MAMMO, screenin g, bilatera l [address] [facility], [address], [place], [address], 2 09:46:59 MAMMO, screenin g, digital, bilatera l 2020 [address] , [address], [facility] [address], [place], [address], 1 10:29:40 Medication Orders metronid azole 0.75 % (37.5 mg/5 gram) vaginal gel [address] [facility] [place], [address], 3 17:18:59 Diflucan 200 mg tablet [address] [facility] [address] [facility], [address] [place], [address], 3 17:18:54 clobetas ol 0.05 % topical ointment [address] [facility] [address] [facility], [address] [place], [address], 3 17:18:51 sertrali ne 50 mg tablet 2021 [facility], [address] [place], [address], 2 09:57:18 Zoloft 50 mg tablet 2020 [facility], [address] [place], [address], 1 16:32:55 Patient TargetsNo targets recorded. Patient Instructions Encounter Date Encounter Id Patient Instructions Last Modified By Organization Details Last Modified Time 07/18/2022 [id number] poison arnulfo, oak, and sumac: care instructions Not available 07/18/2022 15:10:24 Reason for Referral None Reported. 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 Order ing Locat ion: [place] Patho logy Recei art: 05/11 0009 First Scree n: Marcia Gómez , CT Speci men: Lexa smith Pap - Image d, Cervi x STATE MENT OF ADEQU ACY: Satis facto ry for evalu ation Trans forma tion zone compo nent prese nt FINAL DIAGN OSIS: Negat joyce for Intra epith elial Lesio n or Josselyn simmons [place]acy [place] Marcia Gómez , CT on 2020 at 10:44 AM ----- ----- ----- ----- ----- ----- ----- ----- ----- ----- ----- ----- ----- ----- ----- ----- ----- ---- HPV RESUL TS: HPV mRNA E6/E7 : No HPV mRNA Detec laisha NOTE: This high risk HPV mRNA assay detec ts fourt een high- risk HPV types (16, 18, 31, 33, 35, 39, 45, 51, 52, 56, 58, 59, 66, 68) witho ut diffe renti ation . CHART ABLE COMME NT: Note: This speci men was revie wed by a Cytot echno logis t and/o r Patho logis t (as indic ated in this repor t) after evalu ation using the Thinp rep Imagi ng Syste m. CLINI OKSANA INFOR MATIO N: Menst rual Statu s: LMP (if appli cable ): 2020 Clini oksana Histo ry/Pr eviou s Pap: Type of Neopl jeanine (if appli cable ): Signi fican t Clini oksana Findi ngs: Other Histo ry: Hormo jossy (if appli cable ): PAP EDUCA FARTUN L NOTE: The Pap Test is a scree sarah test with an inher ent false negat joyce rate. Liqui d-bas e sampl ing may decre ase, but will not elimi deepti, false negat joyce resul ts. A negat joyce resul t does not precl ude the prese nce and/o r devel opmen t of disea se, since the prese nce of abnor mal cells in the sampl e depen ds on the locat ion of the lesio n and sampl ing techn ique. Papi nued regul ar scree sarah is the best metho d of cance r preve ntion . If repor laisha cytol ogic findi ng do not corre late with physi oksana and/o r histo rical findi ngs, furth er inves tigat ion is recom ben d, as clini nat warrdennis nted. Not Available [facility] (Lab) [address], [place], [address], 05/12/2021 11:47:20 05/11/20 22 05/11/2022 CBC W/DIF F WBC 8.8 10'3/ uL 3.6-10 .2 Not Available [facility] [address] [place] [address], [address], 05/12/2022 11:36:06 05/11/20 22 05/11/2022 CBC W/DIF F RBC 4.70 10'6/ uL (based on docume nted legal sex) 4.10-5 .30 Not Available [facility] [address] [place], [address], 05/12/2022 11:36:06 05/11/20 22 05/11/2022 CBC W/DIF F HGB 14.0 g/dL (based on docume nted legal sex) 11.9-1 5.8 Not Available [facility] [place], [address], 05/12/2022 11:36:06 05/11/20 22 05/11/2022 CBC W/DIF F HCT 43.5 % (based on docume nted legal sex) 37.4-4 8.3 Not Available [facility] [place], [address], 05/12/2022 11:36:06 05/11/20 22 05/11/2022 CBC W/DIF F MCV 92.0 fL 82.0-9 9.0 Not Available [facility] [place], [address], 05/12/2022 11:36:06 05/11/20 22 05/11/2022 CBC W/DIF F MCH 30.0 pg 27.0-3 3.0 Not Available [facility] [place], [address], 05/12/2022 11:36:06 05/11/20 22 05/11/2022 CBC W/DIF F MCHC 32.0 g/dL 32.0-3 6.0 Not Available [facility] [place], [address], 05/12/2022 11:36:06 05/11/20 22 05/11/2022 CBC W/DIF F RDW 13.0 % 11.0-1 5.0 Not Available [facility] [place], [address], 05/12/2022 11:36:06 05/11/20 22 05/11/2022 CBC W/DIF F plt 329 10'3/ uL 150-45 0 Not Available [facility] [address], 05/12/2022 11:36:06 05/11/20 22 05/11/2022 CBC W/DIF F MPV 10.2 fL 9.8-12 .7 Not Available [facility] [address] [place], [place], [address], 05/12/2022 11:36:06 05/11/20 22 05/11/2022 CBC W/DIF F NRBC's 0.00 % 0 Not Available [facility] [place], [address], 05/12/2022 11:36:06 05/11/20 22 05/11/2022 CBC W/DIF F absolute NRBCs 0.0 10'3/ uL 0 Not Available [facility] [place], [address], 05/12/2022 11:36:06 05/11/20 22 05/11/2022 CBC W/DIF F neutrophils 50.0 % 37.0-7 2.0 Not Available [facility] [place], [address], 05/12/2022 11:36:06 05/11/20 22 05/11/2022 CBC W/DIF F lymphocytes 39.0 % 16.0-4 8.0 Not Available [facility] [place], [address], 05/12/2022 11:36:06 05/11/20 22 05/11/2022 CBC W/DIF F monocytes 7.0 % 4.0-14 .0 Not Available [facility] [place], [address], 05/12/2022 11:36:06 05/11/20 22 05/11/2022 CBC W/DIF F eosinophils 3.0 % 0.0-9. 0 Not Available [facility] [address] [place], [place] [address], [place], [address], 05/12/2022 11:36:06 05/11/20 22 05/11/2022 CBC W/DIF F basophils 1.0 % 0.0-2. 0 Not Available [facility] [address] [place] [address], [address], 05/12/2022 11:36:06 05/11/20 22 05/11/2022 CBC W/DIF F immature granulocytes 0.0 % no define d refere nce range Not Available [facility] [address] [place], [place] [address], [place], [address], 05/12/2022 11:36:06 05/11/20 22 05/11/2022 CBC W/DIF F absolute neutrophils 4.5 10'3/ uL 1.1-6. 0 Not Available [facility] [address] [place] [address], [address], 05/12/2022 11:36:06 05/11/20 22 05/11/2022 CBC W/DIF F absolute lymphocytes 3.4 10'3/ uL 0.7-3. 4 Not Available [facility] [address] [place], [place] [address], [place], [address], 05/12/2022 11:36:06 05/11/20 22 05/11/2022 CBC W/DIF F absolute monocytes 0.6 10'3/ uL 0.3-1. 0 Not Available [facility] [address] [place] [address], [address], 05/12/2022 11:36:06 05/11/20 22 05/11/2022 CBC W/DIF F absolute eosinophils 0.3 10'3/ uL 0.0-0. 6 Not Available [facility] [address] [place], [address], 05/12/2022 11:36:06 05/11/20 22 05/11/2022 CBC W/DIF F absolute basophils 0.0 10'3/ uL 0.0-0. 1 Not Available [facility] [address] [place], [address], 05/12/2022 11:36:06 05/11/20 22 05/11/2022 CBC W/DIF F absolute immature granulocytes 0.00 10'3/ uL 0.00-0 .10 2021 1:57 AM: P indic ates parti al resul ts on a panel have been relea sed. Addit ional resul ts will follo w. 2021 1:57 AM: This resul t has been final verif ied. No addit ional or bradley ed resul ts are expec laisha. Not Available [facility] [address] [place], [address], 05/12/2022 11:36:06 05/11/20 22 05/11/2022 LIPID PANEL ,AMA (LDL- CALC) total cholesterol 176 mg/dL 0-199 Not Available [facility] [address] [place], [address], 05/12/2022 11:36:06 05/11/20 22 05/11/2022 LIPID PANEL ,AMA (LDL- CALC) triglyceride s 133 mg/dL 0.00-1 50.00 NCEP Refer ence Value s for Trigl yceri casimiro: Tiffanie l: <150 mg/dL Borde rline High: 150 - 199 mg/dL High: 200 - 499 mg/dL Very High: >/= 500 mg/dL Not Available [facility] [address] [place], [address], 05/12/2022 11:36:06 05/11/20 22 05/11/2022 LIPID PANEL ,AMA (LDL- CALC) HDL cholesterol 48 mg/dL >40 Not Available [address], [address], 05/12/2022 11:36:06 05/11/20 22 05/11/2022 LIPID PANEL ,AMA (LDL- CALC) LDL cholesterol 101 mg/dL 0-99 high Cutof f value s recom ben d by the Natio nal Maryam stero l Educa tion Progr am: KING ABLE: Maryam stero l <200 mg/dL LDL <100 mg/dL BORDE RLINE : Maryam stero l 200-2 39 mg/dL LDL 101-1 59 mg/dL HIGHE R RISK: Maryam stero l >240 mg/dL LDL >160 mg/dL , HDL <40 mg/dL Not Available [address], [address], 05/12/2022 11:36:06 05/11/20 22 05/11/2022 LIPID PANEL ,AMA (LDL- CALC) non-HDL cholesterol 128 mg/dL no refere nce range A reaso nable goal for non-H DL maryam stero l is one that is 30 mg/dL highe r than the LDL maryam stero l goal. Not Available [facility] [address], [address], 05/12/2022 11:36:06 05/11/20 22 05/11/2022 LIPID PANEL ,AMA (LDL- CALC) chol/HDL ratio 3.7 . 0.0-5. 0 Not Available [facility] [id number] [place], [address], 05/12/2022 11:36:06 05/11/20 22 05/11/2022 CMP(C OMPRE HENSI VE METAB OLIC PANEL ) sodium 139 mmol/ L 133-14 6 Not Available [facility] [address] [place], [place] [address], [place], [address], 05/12/2022 11:36:07 05/11/20 22 05/11/2022 CMP(C OMPRE HENSI VE METAB OLIC PANEL ) potassium 4.0 mmol/ L 3.5-5. 1 Not Available [facility] [address] [place], [place] [address], [place], [address], 05/12/2022 11:36:07 05/11/20 22 05/11/2022 CMP(C OMPRE HENSI VE METAB OLIC PANEL ) chloride 99 mmol/ L 98-107 Not Available [facility] [address] [place] [address], [address], 05/12/2022 11:36:07 05/11/20 22 05/11/2022 CMP(C OMPRE HENSI VE METAB OLIC PANEL ) carbon dioxide 30 mmol/ L 21-31 Not Available [facility] [address] [place], [place] [address], [place], [address], 05/12/2022 11:36:07 05/11/20 22 05/11/2022 CMP(C OMPRE HENSI VE METAB OLIC PANEL ) anion gap 10 mmol/ L 4-13 Not Available [facility] [address] [place], [place] [address], [place], [address], 05/12/2022 11:36:07 05/11/20 22 05/11/2022 CMP(C OMPRE HENSI VE METAB OLIC PANEL ) blood urea nitrogen 18 mg/dL 7-25 Not Available [facility] [address] [place], [place] [address], [place], [address], 05/12/2022 11:36:07 05/11/20 22 05/11/2022 CMP(C OMPRE HENSI VE METAB OLIC PANEL ) creatinine 0.94 mg/dL 0.60-1 .30 Not Available [facility] [address] [place], [place] [address], [place], [address], 05/12/2022 11:36:07 05/11/20 22 05/11/2022 CMP(C OMPRE HENSI VE METAB OLIC PANEL ) egfrcr (CKD-epi 2020) 78 mL/mi n/1.7 3_m2 >=60 Not Available [facility] [address] [place], [place] [address], [place], [address], 05/12/2022 11:36:07 05/11/20 22 05/11/2022 CMP(C OMPRE HENSI VE METAB OLIC PANEL ) calcium 9.6 mg/dL 8.3-10 .5 Not Available [facility] [address] [place] [address], [address], 05/12/2022 11:36:07 05/11/20 22 05/11/2022 CMP(C OMPRE HENSI VE METAB OLIC PANEL ) glucose 91 mg/dL 70-100 Not Available [facility] [address] [place], [place] [address], [place], [address], 05/12/2022 11:36:07 05/11/20 22 05/11/2022 CMP(C OMPRE HENSI VE METAB OLIC PANEL ) protein, total 7.1 g/dL 6.4-8. 3 Not Available [facility] [address] [place], [place] [address], [place], [address], 05/12/2022 11:36:07 05/11/20 22 05/11/2022 CMP(C OMPRE HENSI VE METAB OLIC PANEL ) albumin 4.6 g/dL 3.5-5. 0 Not Available [facility] [address] [place], [place] [address], [place], [address], 05/12/2022 11:36:07 05/11/20 22 05/11/2022 CMP(C OMPRE HENSI VE METAB OLIC PANEL ) ALT 15 units /L 9-43 Not Available [facility] [address] [place] [address], [address], 05/12/2022 11:36:07 05/11/20 22 05/11/2022 CMP(C OMPRE HENSI VE METAB OLIC PANEL ) alkaline phosphatase 36 units /L 34-104 Not Available [facility] [address] [place] [address], [address], 05/12/2022 11:36:07 05/11/20 22 05/11/2022 CMP(C OMPRE HENSI VE METAB OLIC PANEL ) AST 16 units /L 13-39 Not Available [facility] [address] [place] [address], [address], 05/12/2022 11:36:07 05/11/20 22 05/11/2022 CMP(C OMPRE HENSI VE METAB OLIC PANEL ) bilirubin, total 0.6 mg/dL 0.2-1. 2 Not Available [address], [address], 05/12/2022 11:36:07 05/11/20 22 05/11/2022 T4 FREE T4, free 0.88 NG/dL 0.60-1 .40 Not Available [facility] [address] [place] [address], [address], 05/12/2022 11:36:07 05/11/20 22 05/11/2022 TSH, REFLE X FREE T4 TSH 5.80 uIU/m L 0.30-5 .33 high Not Available [facility] [address] [place] [address], [address], 05/12/2022 11:36:07 05/11/20 22 05/11/2022 HEMOG LOBIN A1C hemoglobin A1C 5.3 % 0-5.6 The Ameri can Diabe titi Assoc iatio n recom mends that a prima ry goal of thera py porfirioul d be a HBA1C of < 7% and that physi cians shoul d reeva luate the treat ment regim en in patie nts with HBA1C value s consi stent ly > 8%. <5.7% Tiffanie l 5.7 - 6.4% Incre ased risk for diabe titi >=6.5 % Diagn ostic of diabe titi <7.0% Goal of thera py >8.0% Actio n sugge sted Not Available [facility] [address] [place], [address], 05/12/2022 11:36:08 05/11/20 22 05/11/2022 HIMANSHU TIN / IRON / TRANS HIMANSHU N / TIBC iron 99 ug/dL 40-170 Not Available [facility] [address] [place], [address], 05/12/2022 11:36:08 05/11/20 22 05/11/2022 HIMANSHU TIN / IRON / TRANS HIMANSHU N / TIBC transferrin 190 mg/dL 200-36 0 low Not Available [facility] [address] [place] [address], [address], 05/12/2022 11:36:08 05/11/20 22 05/11/2022 HIMANSHU TIN / IRON / TRANS HIMANSHU N / TIBC ferritin 144.0 NG/mL 8.0-25 2.0 Not Available [facility] [address] [place], [address], 05/12/2022 11:36:08 05/11/20 22 05/11/2022 HIMANSHU TIN / IRON / TRANS HIAMNSHU N / TIBC TIBC 266 ug/dL 250-45 0 Not Available [facility] [address] [place], [address], 05/12/2022 11:36:08 05/11/20 22 05/11/2022 HIMANSHU TIN / IRON / TRANS HIMANSHU N / TIBC iron saturation 37 % 20-55 Not Available [facility] [address] [place], [address], 05/12/2022 11:36:08 05/11/20 22 05/11/2022 VITAM IN B12 vitamin B12 823 pg/mL 180-91 4 Tiffanie l Range : 180-9 14 pg/mL . Indet ermin ate Range : 145-1 80 pg/mL . Defic ient Range : <=145 pg/mL . Not Available [facility] [address] [place], [address], 05/12/2022 11:36:09 05/11/20 22 05/11/2022 VITAM IN D, 25-OH (TOTA L D2/D3 ) vitamin D, 25-hydroxy, total 50.0 NG/mL 30.0-1 00.0 R-The refer ence range for this test has been updat ed. Sugge stive of Defic iency : <20 ng/mL Sugge stive of Insuf ficie ncy: 20-29 ng/mL Sugge stive of Suffi cienc y: 30-10 0 ng/mL Sugge stive of Toxic ity: >150 ng/mL Not Available [facility] [address] [place], [address], 05/12/2022 11:36:09 08/25/20 22 08/25/2022 TSH, REFLE X FREE T4 TSH 3.37 uIU/m L 0.30-5 .33 Not Available [facility] (Lab) [address], [place], [address], 08/29/2022 06:32:59 05/09/20 23 05/09/2023 IMAGE GUIDE D PAP AND HPV REGAR DLESS image guided Pap, HPV regardless of Pap result SEE RESULT S BELOW CASE REPOR T: Cytol ogy Gynec ologi oksana Repor t Case: [id number] Autho faith campbell Provi francheska: Maggy Danielle, WANDY Madera cted: 05/09 1757 Order ing Locat ion: [place] Patho logy Recei art: 05/10 0238 First Scree n: Azalea Snowden Rescr een: Yue chaney, Jurgen shelyb, CT Speci men: Scree sarah Pap - Image d, Cervi x STATE MENT OF ADEQU ACY: Satis facto ry for evalu ation Trans forma tion zone compo nent prese nt FINAL DIAGN OSIS: Negat joyce for Intra epith elial Lesio n or Josselyn simmons (NIL) . Elect gracy [place] by Yue chaney, Jurgen shelby, CT on 2022 at 10:27 PM ----- ----- ----- ----- ----- ----- ----- ----- ----- ----- ----- ----- ----- ----- ----- ----- ----- ---- HPV RESUL TS: HPV mRNA E6/E7 : No HPV mRNA Detec laisha NOTE: This high risk HPV mRNA assay detec ts fourt een high- risk HPV types (16, 18, 31, 33, 35, 39, 45, 51, 52, 56, 58, 59, 66, 68) witho ut diffe renti ation . COMME NT: This speci men was revie wed by a Cytot echno logis t and/o r Patho logis t (as indic ated in this repor t) after evalu ation using the Thinp rep Imagi ng Syste m. CLINI OKSANA INFOR MATIO N: Menst rual Statu s: LMP (if appli cable ): Clini oksana Histo ry/Pr eviou s Pap: Type of Neopl jeanine (if appli cable ): Signi fican t Clini oksana Findi ngs: Other Histo ry: Hormo jossy (if appli cable ): PAP EDUCA FARTUN L NOTE: The Pap Test is a scree sarah test with an inher ent false negat joyce rate. Liqui d-bas ed sampl ing may decre ase, but will not elimi deepti, false negat joyce resul ts. A negat joyce resul t does not precl ude the prese nce and/o r devel opmen t of disea se, since the prese nce of abnor mal cells in the sampl e depen ds on the locat ion of the lesio n and sampl ing techn ique. Papi nued regul ar scree sarah is the best metho d of cance r preve ntion . If repor laisha cytol ogic findi ng do not corre late with physi oksana and/o r histo rical findi ngs, furth er inves tigat ion is recom ben d, as clini nat warra nted. Not Available [facility] [facility] Facility (Lab) [address] [facility], [place], [address], 05/10/2023 23:29:51 05/30/20 23 05/30/2023 CBC W/DIF F WBC 6.2 10'3/ uL 3.6-10 .2 Not Available [facility] (Lab) [address] [facility], [place], [address], 05/31/2023 06:38:02 05/30/20 23 05/30/2023 CBC W/DIF F RBC 4.40 10'6/ uL (based on docume nted legal sex) 4.10-5 .30 Not Available [facility] (Lab) [address] [facility], [place], [address], 05/31/2023 06:38:02 05/30/20 23 05/30/2023 CBC W/DIF F HGB 13.2 g/dL (based on docume nted legal sex) 11.9-1 5.8 Not Available [facility] (Lab) [address] [facility], [place], [address], 05/31/2023 06:38:02 05/30/20 23 05/30/2023 CBC W/DIF F HCT 41.5 % (based on docume nted legal sex) 37.4-4 8.3 Not Available [facility] (Lab) [address], [place], [address], 05/31/2023 06:38:02 05/30/20 23 05/30/2023 CBC W/DIF F MCV 94.3 fL 82.0-9 9.0 Not Available [facility] (Lab) [address], [place], [address], 05/31/2023 06:38:02 05/30/20 23 05/30/2023 CBC W/DIF F MCH 30.0 pg 27.0-3 3.0 Not Available [facility] (Lab) [address], [place], [address], 05/31/2023 06:38:02 05/30/20 23 05/30/2023 CBC W/DIF F MCHC 31.8 g/dL 32.0-3 6.0 low Not Available [facility] (Lab) [address], [place], [address], 05/31/2023 06:38:02 05/30/20 23 05/30/2023 CBC W/DIF F RDW 12.6 % 11.0-1 5.0 Not Available [facility] (Lab) [address], [place], [address], 05/31/2023 06:38:02 05/30/20 23 05/30/2023 CBC W/DIF F plt 262 10'3/ uL 150-45 0 Not Available [facility] (Lab) [address], [place], [address], 05/31/2023 06:38:02 05/30/20 23 05/30/2023 CBC W/DIF F MPV 10.1 fL 9.8-12 .7 Not Available [facility] (Lab) [address], [place], [address], 05/31/2023 06:38:02 05/30/20 23 05/30/2023 CBC W/DIF F NRBC's 0.0 % 0 Not Available [facility] (Lab) [address], [place], [address], 05/31/2023 06:38:02 05/30/20 23 05/30/2023 CBC W/DIF F absolute NRBCs 0.0 10'3/ uL 0 Not Available [facility] (Lab) [address], [place], [address], 05/31/2023 06:38:02 05/30/20 23 05/30/2023 CBC W/DIF F neutrophils 50.3 % 37.0-7 2.0 Not Available [facility] (Lab) [address], [place], [address], 05/31/2023 06:38:02 05/30/20 23 05/30/2023 CBC W/DIF F lymphocytes 36.7 % 16.0-4 8.0 Not Available [facility] (Lab) [address], [place], [address], 05/31/2023 06:38:02 05/30/20 23 05/30/2023 CBC W/DIF F monocytes 9.9 % 4.0-14 .0 Not Available [facility] (Lab) [address] [facility], [place], [address], 05/31/2023 06:38:02 05/30/20 23 05/30/2023 CBC W/DIF F eosinophils 2.3 % 0.0-9. 0 Not Available [facility] (Lab) [address] [facility], [place], [address], 05/31/2023 06:38:02 05/30/20 23 05/30/2023 CBC W/DIF F basophils 0.5 % 0.0-2. 0 Not Available [facility] (Lab) [address] [facility], [place], [address], 05/31/2023 06:38:02 05/30/20 23 05/30/2023 CBC W/DIF F immature granulocytes 0.3 % no define d refere nce range Not Available [facility] (Lab) [address] [facility], [place], [address], 05/31/2023 06:38:02 05/30/20 23 05/30/2023 CBC W/DIF F absolute neutrophils 3.1 10'3/ uL 1.1-6. 0 Not Available [facility] (Lab) [address] [facility], [place], [address], 05/31/2023 06:38:02 05/30/20 23 05/30/2023 CBC W/DIF F absolute lymphocytes 2.3 10'3/ uL 0.7-3. 4 Not Available [facility] (Lab) [address] [facility], [place], [address], 05/31/2023 06:38:02 05/30/20 23 05/30/2023 CBC W/DIF F absolute monocytes 0.6 10'3/ uL 0.3-1. 0 Not Available [facility] (Lab) [address] [facility], [place], [address], 05/31/2023 06:38:02 05/30/20 23 05/30/2023 CBC W/DIF F absolute eosinophils 0.1 10'3/ uL 0.0-0. 6 Not Available [facility] (Lab) [address] [facility], [place], [address], 05/31/2023 06:38:02 05/30/20 23 05/30/2023 CBC W/DIF F absolute basophils 0.0 10'3/ uL 0.0-0. 1 Not Available [facility] (Lab) [address] [place], [address], 05/31/2023 06:38:02 05/30/2005/30/2023 CBC W/DIF F absolute immature granulocytes 0.0 10'3/ uL 0.00-0 .10 2022 4:18 AM: P indic ates parti al resul ts on a panel have been relea sed. Addit ional resul ts will follo w. 2022 4:18 AM: This resul t has been final verif ied. No addit ional or bradley ed resul ts are expec laisha. Not Available [facility] (Lab) [address] [facility], [place], [address], 05/31/2023 06:38:02 05/30/2005/30/2023 HEMOG LOBIN A1C hemoglobin A1C 5.2 % 0-5.6 The Ameri can Diabe titi Assoc iatio n recom mends that a prima ry goal of thera py aparna d be a HBA1C of < 7% and that physi cians shoul d reeva luate the treat ment regim en in patie nts with HBA1C value s consi stent ly > 8%. <5.7% Tiffanie l 5.7 - 6.4% Incre ased risk for diabe titi >=6.5 % Diagn ostic of diabe titi <7.0% Goal of thera py >8.0% Actio n sugge sted Not Available [facility] (Lab) [address] [facility], [place], [address], 05/31/2023 06:38:03 05/30/2005/30/2023 LIPID PANEL ,AMA (LDL- CALC) total cholesterol 138 mg/dL 0-199 Not Available [facility] (Lab) [address] [facility], [place], [address], 05/31/2023 06:38:04 05/30/2005/30/2023 LIPID PANEL ,AMA (LDL- CALC) triglyceride s 83 mg/dL 0.00-1 50.00 NCEP Refer ence Value s for Trigl yceri casimiro: Tiffanie l: <150 mg/dL Borde rline High: 150 - 199 mg/dL High: 200 - 499 mg/dL Very High: >/= 500 mg/dL Not Available [facility] (Lab) [address] [place], [address], 05/31/2023 06:38:04 05/30/20 23 05/30/2023 LIPID PANEL ,AMA (LDL- CALC) HDL cholesterol 49 mg/dL >40 Not Available [facility] (Lab) [address] [facility], [place], [address], 05/31/2023 06:38:04 05/30/20 23 05/30/2023 LIPID PANEL ,AMA (LDL- CALC) LDL cholesterol 72 mg/dL 0-99 Cutof f value s recom ben d by the Natjadyn nal Maryam stero l Educa tion Progr am: KING ABLE: Maryam stero l <200 mg/dL LDL <100 mg/dL BORDE RLINE : Maryam stero l 200-2 39 mg/dL LDL 101-1 59 mg/dL HIGHE R RISK: Maryam stero l >240 mg/dL LDL >160 mg/dL , HDL <40 mg/dL Not Available [facility] (Lab) [address] [facility], [place], [address], 05/31/2023 06:38:04 05/30/2005/30/2023 LIPID PANEL ,AMA (LDL- CALC) non-HDL cholesterol 89 mg/dL no refere nce range A reaso nable goal for non-H DL maryam stero l is one that is 30 mg/dL highe r than the LDL maryam stero l goal. Not Available [facility] (Lab) [address] [facility], [place], [address], 05/31/2023 06:38:04 05/30/2005/30/2023 LIPID PANEL ,AMA (LDL- CALC) chol/HDL ratio 2.8 . 0.0-5. 0 On February 06, 2023, [facility] labor atori ambika bradley ed the equat ion for calcu latin g estim ated low-d ensit y lipop rotei n-cho leste rol (LDL- C) from the Fried fernanda equat ion to the Dariana n/Hop kins equat ion. This new equat ion is only valid for lipid panel s with trigl yceri casimiro < 400 mg/dL . Studi es have demon strat ed that this new equat ion will impro ve the accur acy of LDL-C , espec ially in scena melendrez when LDL-C bibiana ntrat ions are relat ively low (< 100 mg/dL ), trigl yceri casimiro are eleva laisha, or patie nt is non-f astin g. Refer ences : - Dariana loya, Michael Damon, Linwood Olvera , Tobin newman, Yaakov Sarmiento, Yaakov rajan, Scott Givens. [facility] , and Duane Walker . 2013. Comp ariso n of a Novel Metho d vs the Fried fernanda Equat ion for Estim ating Low-D ensit y Lipop rotei n Maryam stero l Level s from the Stand lorin Lipid Profi le. MARY: The Journ al of the Ameri can Medic al Assoc iatio n 310 19): 2060- . - Neema العلي V, Sherron J, Shayna ar A, Jennifer M, Andrea e R, Matthew العلي E, Aubrey [facility] RS, Aaron SR, Dariana loay SS. Fast ing Versu s Nonfa sting and Low-D ensit y Lipop rotei n Maryam stero l Accur acy. Circu latio n. 2017Oct 16;137 (1):1 0-19. Not Available [facility] (Lab) [address] [place], [address], 05/31/2023 06:38:04 05/30/20 23 05/30/2023 CMP(C OMPRE HENSI VE METAB OLIC PANEL ) sodium 136 mmol/ L 133-14 6 Not Available [facility] (Lab) [address], [place], [address], 05/31/2023 06:38:04 05/30/20 23 05/30/2023 CMP(C OMPRE HENSI VE METAB OLIC PANEL ) potassium 3.9 mmol/ L 3.5-5. 1 Not Available [facility] (Lab) [address] [facility], [place], [address], 05/31/2023 06:38:04 05/30/20 23 05/30/2023 CMP(C OMPRE HENSI VE METAB OLIC PANEL ) chloride 98 mmol/ L 98-107 Not Available [facility] (Lab) [address] [facility], [place], [address], 05/31/2023 06:38:04 05/30/20 23 05/30/2023 CMP(C OMPRE HENSI VE METAB OLIC PANEL ) carbon dioxide 34 mmol/ L 21-31 high Not Available [facility] (Lab) [address] [facility], [place], [address], 05/31/2023 06:38:04 05/30/20 23 05/30/2023 CMP(C OMPRE HENSI VE METAB OLIC PANEL ) anion gap 4 mmol/ L 4-13 Not Available [facility] (Lab) [address] [facility], [place], [address], 05/31/2023 06:38:04 05/30/20 23 05/30/2023 CMP(C OMPRE HENSI VE METAB OLIC PANEL ) blood urea nitrogen 11 mg/dL 7-25 Not Available [facility] (Lab) [address] [facility] [address] [facility], [place], [address], 05/31/2023 06:38:04 05/30/20 23 05/30/2023 CMP(C OMPRE HENSI VE METAB OLIC PANEL ) creatinine 0.89 mg/dL 0.60-1 .30 Not Available [facility] (Lab) [address] [facility], [place], [address], 05/31/2023 06:38:04 05/30/20 23 05/30/2023 CMP(C OMPRE HENSI VE METAB OLIC PANEL ) egfrcr (CKD-epi 2020) 83 mL/mi n/1.7 3_m2 >=60 Not Available [facility] (Lab) [address] [facility], [place], [address], 05/31/2023 06:38:04 05/30/20 23 05/30/2023 CMP(C OMPRE HENSI VE METAB OLIC PANEL ) calcium 9.6 mg/dL 8.3-10 .5 Not Available [facility] (Lab) [address] [facility], [place], [address], 05/31/2023 06:38:04 05/30/20 23 05/30/2023 CMP(C OMPRE HENSI VE METAB OLIC PANEL ) glucose 84 mg/dL 70-100 Not Available [facility] (Lab) [address] [facility], [place], [address], 05/31/2023 06:38:04 05/30/20 23 05/30/2023 CMP(C OMPRE HENSI VE METAB OLIC PANEL ) protein, total 7.1 g/dL 6.4-8. 3 Not Available [facility] (Lab) [address] [facility], [place], [address], 05/31/2023 06:38:04 05/30/20 23 05/30/2023 CMP(C OMPRE HENSI VE METAB OLIC PANEL ) albumin 4.5 g/dL 3.5-5. 0 Not Available [facility] (Lab) [address] [facility], [place], [address], 05/31/2023 06:38:04 05/30/20 23 05/30/2023 CMP(C OMPRE HENSI VE METAB OLIC PANEL ) ALT 20 units /L 9-43 Not Available [facility] (Lab) [address] [facility], [place], [address], 05/31/2023 06:38:04 05/30/20 23 05/30/2023 CMP(C OMPRE HENSI VE METAB OLIC PANEL ) alkaline phosphatase 37 units /L 34-104 Not Available [facility] (Lab) [address] [facility], [place], [address], 05/31/2023 06:38:04 05/30/20 23 05/30/2023 CMP(C OMPRE HENSI VE METAB OLIC PANEL ) AST 18 units /L 13-39 Not Available [facility] (Lab) [address] [facility], [place], [address], 05/31/2023 06:38:04 05/30/20 23 05/30/2023 CMP(C OMPRE HENSI VE METAB OLIC PANEL ) bilirubin, total 0.4 mg/dL 0.2-1. 2 Not Available [facility] (Lab) [address] [facility], [place], [address], 05/31/2023 06:38:04 05/30/20 23 05/30/2023 TSH, REFLE X FREE T4 TSH 2.79 uIU/m L 0.30-5 .33 Not Available [facility] (Lab) [address] [facility], [place], [address], 05/31/2023 06:38:05 05/30/20 23 05/30/2023 HIMANSHU TIN / IRON / TRANS HIMANSHU N / TIBC iron 79 ug/dL 40-170 Not Available [facility] (Lab) [address] [facility], [place], [address], 05/31/2023 06:38:05 05/30/20 23 05/30/2023 HIMANSHU TIN / IRON / TRANS HIMANSHU N / TIBC transferrin 182 mg/dL 200-36 0 low Not Available [facility] (Lab) [address] [facility], [place], [address], 05/31/2023 06:38:05 05/30/20 23 05/30/2023 HIMANSHU TIN / IRON / TRANS HIMANSHU N / TIBC ferritin 103.7 NG/mL 8.0-25 2.0 Not Available [facility] (Lab) [address] [place], [address], 05/31/2023 06:38:05 05/30/20 23 05/30/2023 HIMANSHU TIN / IRON / TRANS HIMANSHU N / TIBC TIBC 255 ug/dL 250-45 0 Not Available [facility] (Lab) [address] [facility], [place], [address], 05/31/2023 06:38:05 05/30/20 23 05/30/2023 HIMANSHU TIN / IRON / TRANS HIMANSHU N / TIBC iron saturation 31 % 20-55 Not Available [facility] (Lab) [address], [place], [address], 05/31/2023 06:38:05 05/30/20 23 05/30/2023 VITAM IN D, 25-OH (TOTA L D2/D3 ) vitamin D, 25-hydroxy, total 43.8 NG/mL 30.0-1 00.0 Sugge stive of Defic iency : <20 ng/mL Sugge stive of Insuf ficie ncy: 20-29 ng/mL Sugge stive of Suffi cienc y: 30-10 0 ng/mL Sugge stive of Toxic ity: >150 ng/mL Not Available [facility] (Lab) [address] [facility] [facility], [place], [address], 05/31/2023 06:38:05 05/22/20 24 05/22/2024 IMAGE GUIDE D PAP AND HPV REGAR DLESS image guided Pap, HPV regardless of Pap result SEE RESULT S BELOW CASE REPOR T: Cytol ogy Gynec ologi oksana Repor t Case: [id number] Autho ricindy g Provi francheska: Maggy Danielle, WANDY Colle cted: 05/22 1456 Order ing Locat ion: [place] Path[facility] Recei art: 05/23 0812 First Scree n: Juan gambino, Mohjose ed, CT Rescr een: Annette Walker ay, CT Speci men: Scree sarah Pap - Image d, Cervi x STATE MENT OF ADEQU ACY: Satis facto ry for evalu ation Trans forma tion zone compo nent absen t The absen ce of an endoc ervic al compo nent was confi rmed by an addit ional scree ner. ----- ----- ----- ----- ----- ----- ----- ----- ----- ----- ----- ----- ----- ----- ----- ----- ----- ---- FINAL DIAGN OSIS: Negat joyce for Intra epith elial Dee loya or Josselyn simmons (NIL) . Elect gracy bliss by Annette Walker, CT on 2023 at 6:52 AM ----- ----- ----- ----- ----- ----- ----- ----- ----- ----- ----- ----- ----- ----- ----- ----- ----- ---- HPV RESUL TS: HPV mRNA E6/E7 : No HPV mRNA Detec laisha NOTE: This high risk HPV mRNA assay detec ts fourt een high- risk HPV types (16, 18, 31, 33, 35, 39, 45, 51, 52, 56, 58, 59, 66, 68) witho ut diffe renti ation . COMME NT: This speci men was revie wed by a Cytot echno logis t and/o r Patho logis t (as indic ated in this repor t) after evalu ation using the Thinp rep Imagi ng Syste m. CLINI [facility]NA INFOR MATIO N: Menst rual Statu s: LMP (if appli cable ): Clini oksana Histo ry/Pr eviou s Pap: Type of Neopl jeanine (if appli cable ): Signi bernardino t Clini oksana Findi ngs: Other Histo ry: Hormo jossy (if appli cable ): PAP EDUCA FARTUN L NOTE: The Pap Test is a scree sarah test with an inher ent false negat joyce rate. Liqui d-bas ed sampl ing may decre ase, but will not elimi deepti, false negat joyce resul ts. A negat joyce resul t does not precl ude the prese nce and/o r devel opmen t of disea se, since the prese nce of abnor mal cells in the sampl e depen ds on the locat ion of the lesio n and sampl ing techn ique. Papi nued regul ar scree sarah is the best metho d of cance r preve ntion . If repor laisha cytol ogic findi ng do not corre late with physi oksana and/o r histo rical findi ngs, furth er inves tigat ion is recom ben d, as clini nat bell nted. Not Available [facility] (Lab) [address] [place], [address], 05/30/2024 07:57:29 08/28/20 24 08/28/2024 CBC W/DIF F WBC 7.8 10'3/ uL 3.5-10 .5 Not Available [facility] (Lab) [address], [place], [address], 08/31/2024 03:12:50 08/28/20 24 08/28/2024 CBC W/DIF F RBC 4.41 10'6/ uL (based on docume nted legal sex) 3.80-5 .20 Not Available [facility] (Lab) [address] [place], [address], 08/31/2024 03:12:50 08/28/20 24 08/28/2024 CBC W/DIF F HGB 12.9 g/dL (based on docume nted legal sex) 11.6-1 5.4 Not Available [facility] (Lab) [address] [place], [address], 08/31/2024 03:12:50 08/28/20 24 08/28/2024 CBC W/DIF F HCT 40.7 % (based on docume nted legal sex) 34.0-4 5.0 Not Available [facility] (Lab) [address], [place], [address], 08/31/2024 03:12:50 08/28/20 24 08/28/2024 CBC W/DIF F MCV 92.3 fL 80.0-9 9.0 Not Available [facility] (Lab) [address], [place], [address], 08/31/2024 03:12:50 08/28/20 24 08/28/2024 CBC W/DIF F MCH 29.3 pg 27.0-3 4.0 Not Available [facility] (Lab) [address], [place], [address], 08/31/2024 03:12:50 08/28/20 24 08/28/2024 CBC W/DIF F MCHC 31.7 g/dL 32.0-3 5.5 low Not Available [facility] (Lab) [address], [place], [address], 08/31/2024 03:12:50 08/28/20 24 08/28/2024 CBC W/DIF F RDW 13.9 % 11.0-1 5.0 Not Available [facility] (Lab) [address], [place], [address], 08/31/2024 03:12:50 08/28/20 24 08/28/2024 CBC W/DIF F plt 257 10'3/ uL 150-40 0 Not Available [facility] (Lab) [address], [place], [address], 08/31/2024 03:12:50 08/28/20 24 08/28/2024 CBC W/DIF F MPV 9.9 fL 8.8-12 .1 Not Available [facility] (Lab) [address], [place], [address], 08/31/2024 03:12:50 08/28/20 24 08/28/2024 CBC W/DIF F NRBC's 0.0 % 0.0 Not Available [facility] (Lab) [address] [facility], [place], [address], 08/31/2024 03:12:50 08/28/20 24 08/28/2024 CBC W/DIF F absolute NRBCs 0.0 10'3/ uL no refere nce range establ ished Not Available [facility] (Lab) [address] [facility], [place], [address], 08/31/2024 03:12:50 08/28/20 24 08/28/2024 CBC W/DIF F neutrophils 59.5 % 34.0-7 3.0 Not Available [facility] (Lab) [address] [facility], [place], [address], 08/31/2024 03:12:50 08/28/20 24 08/28/2024 CBC W/DIF F lymphocytes 27.6 % 15.0-5 0.0 Not Available [facility] (Lab) [address], [place], [address], 08/31/2024 03:12:50 08/28/20 24 08/28/2024 CBC W/DIF F monocytes 9.2 % 1.0-15 .0 Not Available [facility] (Lab) [address] [facility], [place], [address], 08/31/2024 03:12:50 08/28/20 24 08/28/2024 CBC W/DIF F eosinophils 2.6 % 0.0-8. 0 Not Available [facility] (Lab) [address] [facility], [place], [address], 08/31/2024 03:12:50 08/28/20 24 08/28/2024 CBC W/DIF F basophils 0.5 % 0.0-2. 0 Not Available [facility] (Lab) [address] [facility], [place], [address], 08/31/2024 03:12:50 08/28/20 24 08/28/2024 CBC W/DIF F immature granulocytes 0.6 % no define d refere nce range Not Available [facility] (Lab) [address] [facility], [place], [address], 08/31/2024 03:12:50 08/28/20 24 08/28/2024 CBC W/DIF F absolute neutrophils 4.7 10'3/ uL 1.5-8. 0 Not Available [facility] (Lab) [address] [facility], [place], [address], 08/31/2024 03:12:50 08/28/20 24 08/28/2024 CBC W/DIF F absolute lymphocytes 2.2 10'3/ uL 1.0-4. 0 Not Available [facility] (Lab) [address] [facility], [place], [address], 08/31/2024 03:12:50 08/28/20 24 08/28/2024 CBC W/DIF F absolute monocytes 0.7 10'3/ uL 0.2-1. 0 Not Available [facility] (Lab) [address] [facility], [place], [address], 08/31/2024 03:12:50 08/28/20 24 08/28/2024 CBC W/DIF F absolute eosinophils 0.2 10'3/ uL 0.0-0. 6 Not Available [facility] (Lab) [address] [facility], [place], [address], 08/31/2024 03:12:50 08/28/20 24 08/28/2024 CBC W/DIF F absolute basophils 0.0 10'3/ uL 0.0-0. 3 Not Available [facility] (Lab) [address] [place], [address], 08/31/2024 03:12:50 08/28/20 24 08/28/2024 CBC W/DIF F absolute immature granulocytes 0.1 10'3/ uL 0.00-0 .10 08/29 9:12 AM: P indic ates parti al resul ts on a panel have been relea sed. Addit ional resul ts will follo w. 08/29 9:12 AM: This resul t has been final verif ied. No addit ional or bradley ed resul ts are expec laisha. Not Available [facility] (Lab) [address] [facility], [place], [address], 08/31/2024 03:12:50 08/28/20 24 08/28/2024 TSH, REFLE X FREE T4 TSH 3.76 uIU/m L 0.30-5 .33 Not Available [facility] (Lab) [address] [facility], [place], [address], 08/31/2024 03:12:51 08/28/20 24 08/28/2024 CMP(C OMPRE HENSI VE METAB OLIC PANEL ) sodium 139 mmol/ L 133-14 6 Not Available [facility] (Lab) [address] [facility] [facility], [place], [address], 08/31/2024 03:12:51 08/28/20 24 08/28/2024 CMP(C OMPRE HENSI VE METAB OLIC PANEL ) potassium 4.1 mmol/ L 3.5-5. 1 Not Available [facility] (Lab) [address] [place], [address], 08/31/2024 03:12:51 08/28/20 24 08/28/2024 CMP(C OMPRE HENSI VE METAB OLIC PANEL ) chloride 100 mmol/ L 98-107 Not Available [facility] (Lab) [address] [place], [address], 08/31/2024 03:12:51 08/28/20 24 08/28/2024 CMP(C OMPRE HENSI VE METAB OLIC PANEL ) carbon dioxide 31 mmol/ L 21-31 Not Available [facility] (Lab) [address] [place], [address], 08/31/2024 03:12:51 08/28/20 24 08/28/2024 CMP(C OMPRE HENSI VE METAB OLIC PANEL ) anion gap 8 mmol/ L 4-13 Not Available [facility] (Lab) [address] [facility], [place], [address], 08/31/2024 03:12:51 08/28/20 24 08/28/2024 CMP(C OMPRE HENSI VE METAB OLIC PANEL ) blood urea nitrogen 11 mg/dL 7-25 Not Available [facility] (Lab) [address] [facility], [place], [address], 08/31/2024 03:12:51 08/28/20 24 08/28/2024 CMP(C OMPRE HENSI VE METAB OLIC PANEL ) creatinine 0.71 mg/dL 0.60-1 .30 Not Available [facility] (Lab) [address] [facility], [place], [address], 08/31/2024 03:12:51 08/28/20 24 08/28/2024 CMP(C OMPRE HENSI VE METAB OLIC PANEL ) egfrcr (CKD-epi 2020) >90 mL/mi n/1.7 3_m2 >=60 Not Available [facility] (Lab) [address] [facility], [place], [address], 08/31/2024 03:12:51 08/28/20 24 08/28/2024 CMP(C OMPRE HENSI VE METAB OLIC PANEL ) calcium 9.1 mg/dL 8.3-10 .5 Not Available [facility] (Lab) [address] [facility], [place], [address], 08/31/2024 03:12:51 08/28/20 24 08/28/2024 CMP(C OMPRE HENSI VE METAB OLIC PANEL ) glucose 77 mg/dL 70-100 Not Available [facility] (Lab) [address] [facility], [place], [address], 08/31/2024 03:12:51 08/28/20 24 08/28/2024 CMP(C OMPRE HENSI VE METAB OLIC PANEL ) protein, total 6.6 g/dL 6.4-8. 3 Not Available [facility] (Lab) [address] [facility], [place], [address], 08/31/2024 03:12:51 08/28/20 24 08/28/2024 CMP(C OMPRE HENSI VE METAB OLIC PANEL ) albumin 4.3 g/dL 3.5-5. 0 Not Available [facility] (Lab) [address] [facility], [place], [address], 08/31/2024 03:12:51 08/28/20 24 08/28/2024 CMP(C OMPRE HENSI VE METAB OLIC PANEL ) ALT 17 units /L 9-43 Not Available [facility] (Lab) [address] [facility], [place], [address], 08/31/2024 03:12:51 08/28/20 24 08/28/2024 CMP(C OMPRE HENSI VE METAB OLIC PANEL ) alkaline phosphatase 38 units /L 34-104 Not Available [facility] (Lab) [address] [facility], [place], [address], 08/31/2024 03:12:51 08/28/20 24 08/28/2024 CMP(C OMPRE HENSI VE METAB OLIC PANEL ) AST 16 units /L 13-39 Not Available [facility] (Lab) [address] [facility], [place], [address], 08/31/2024 03:12:51 08/28/20 24 08/28/2024 CMP(C OMPRE HENSI VE METAB OLIC PANEL ) bilirubin, total 0.5 mg/dL 0.2-1. 2 Not Available [facility] (Lab) [address] [facility], [place], [address], 08/31/2024 03:12:51 08/28/20 24 08/28/2024 LIPID PANEL ,AMA (LDL- CALC) total cholesterol 146 mg/dL 0-199 Not Available [facility] (Lab) [address] [place], [address], 08/31/2024 03:12:52 08/28/20 24 08/28/2024 LIPID PANEL ,AMA (LDL- CALC) triglyceride s 78 mg/dL 0-150 NCEP Refer ence Value s for Trigl yceri casimiro: Tiffanie l: <150 mg/dL Borde rline High: 150 - 199 mg/dL High: 200 - 499 mg/dL Very High: >/= 500 mg/dL Not Available [facility] (Lab) [address] [place], [address], 08/31/2024 03:12:52 08/28/20 24 08/28/2024 LIPID PANEL ,AMA (LDL- CALC) HDL cholesterol 52 mg/dL >40 Not Available [facility] (Lab) [address] [place], [address], 08/31/2024 03:12:52 08/28/20 24 08/28/2024 LIPID PANEL ,AMA (LDL- CALC) LDL cholesterol 78 mg/dL 0-99 Cutof f value s recom ben d by the Natio nal Maryam stero l Educa tion Progr am: KING ABLE: Maryam stero l <200 mg/dL LDL <100 mg/dL BORDE RLINE : Maryam stero l 200-2 39 mg/dL LDL 101-1 59 mg/dL HIGHE R RISK: Maryam stero l >240 mg/dL LDL >160 mg/dL , HDL <40 mg/dL Not Available [facility] (Lab) [address] [place], [address], 08/31/2024 03:12:52 08/28/20 24 08/28/2024 LIPID PANEL ,AMA (LDL- CALC) non-HDL cholesterol 94 mg/dL no refere nce range A reaso nable goal for non-H DL maryam stero l is one that is 30 mg/dL highe r than the LDL maryam stero l goal. Not Available [facility] (Lab) [address], [place], [address], 08/31/2024 03:12:52 08/28/20 24 08/28/2024 LIPID PANEL ,AMA (LDL- CALC) chol/HDL ratio 2.8 . 0.0-5. 0 On February 06, 2023, [facility] labor atori es bradley ed the equat ion for calcu latin g estim ated low-d ensit y lipop rotei n-cho leste rol (LDL- C) from the Fried fernanda equat ion to the Dariana n/Hop kins equat ion. This new equat ion is only valid for lipid panel s with trigl yceri casimiro < 400 mg/dL . Studi es have demon strat ed that this new equat ion will impro ve the accur acy of LDL-C , espec ially in scena melendrez when LDL-C bibiana ntrat ions are relat ively low (< 100 mg/dL ), trigl yceri casimiro are eleva laisha, or patie nt is non-f astin g. Refer ences : - Dariana loya, Michael Damon, Linwood Olvera , [facility] natalie newman, Yaakov Sarmiento, Yaakov rajan, Scott Givens. Aubrey jones , and Duane Walker . 2013. Comp ariso n of a Novel Metho d vs the Fried fernanda Equat ion for Estim ating Low-D ensit y Lipop rotei n Maryam stero l Level s from the Stand lorin Lipid Profi le. MARY: The Journ al of the Ameri can Medic al Assoc iatio n 310 (19): 2060- . - Neema العلي V, Sherron J, Shayna العلي A, Jennifer M, Andrea e R, Matthew العلي E, Aubrey jones RS, Aaron SR, Dariana loya SS. Fast ing Versu s Nonfa sting and Low-D ensit y Lipop rotei n Maryam stero l Accur acy. Circu latjadyn n. 2017Oct 16;137 (1):1 0-19. Not Available [facility] (Lab) [address], [place], [address], 08/31/2024 03:12:52 08/28/20 24 08/28/2024 VITAM IN D, 25-OH (TOTA L D2/D3 ) vitamin D, 25-hydroxy, total 46.2 NG/mL 30.0-1 00.0 Sugge stive of Defic iency : <20 ng/mL Sugge stive of Insuf ficie ncy: 20-29 ng/mL Sugge stive of Suffi cienc y: 30-10 0 ng/mL Sugge stive of Toxic ity: >150 ng/mL Not Available [facility] (Lab) [address], [place], [address], 08/31/2024 03:12:52 08/28/20 24 08/28/2024 HEMOG LOBIN A1C hemoglobin A1C 5.1 % 0-5.6 The Ameri can Diabe titi Assoc iatio n recom mends that a prima ry goal of thera py shoul d be a HBA1C of < 7% and that physi cians shoul d reeva luate the treat ment regim en in patie nts with HBA1C value s consi stent ly > 8%. <5.7% Tiffanie l 5.7 - 6.4% Incre ased risk for diabe titi >=6.5 % Diagn ostic of diabe titi <7.0% Goal of thera py >8.0% Actio n sugge sted Not Available [facility] (Lab) [address], [place], [address], 08/31/2024 03:12:53 05/25/20 22 05/24/2022 MAMMO , scree sarah, bilat eral No observ ation record ed. [facility] [address], [place], [address], 05/30/2022 10:27:02 Result Notes None recorded. Problems Name Problem SNOMED Code Status Onset Date Resolution Date Notes Provider Name and Address Organization Details Recorded Time Vaginiti s and vulvovag initis Completed 201404/12/2021 Vaginitis and vulvovagi nitis, unspecifi ed;Record ed Elsewhere : No Locati on: [facility] So urce: EHR Chron ic: N Practic e ID: 0001 Bill able Time: 01:15:00 PM Corrina [facility] 13:13:37 Speciali zed medical examinat ion Completed 201304/12/2021 Other specified chlamydia l diseases; Recorded Elsewhere : No Locati on: [facility] So urce: EHR Chron ic: N Practic e ID: 0001 Bill able Time: 08:30:00 AM Corrina [facility] 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 13:13:33 Uses IUD (intraut erine device) contrace ption [id number] Completed 201304/12/2021 Surveilla nce of intrauter ine contracep tive device;Re corded Elsewhere : No Locati on: [facility] So urce: EHR Chron ic: N Practic e ID: 0001 Bill able Time: 10:45:00 AM Corrina [facility] 13:13:21 Routine antenata l care Completed 201304/12/2021 Supervisi on of other normal ;Recorded Elsewhere : No Locati on: [facility] So urce: EHR Chron ic: N Practic e ID: 0001 Bill able Time: 03:00:00 PM Corrina [facility] 13:13:28 Sexually transmit laisha infectio us disease [id number] Completed 201304/12/2021 SPECIAL SCREEN EXAM HPV;Recor ded Elsewhere : No Locati on: [facility] So urce: EHR Chron ic: N Practic e ID: 0001 Bill able Time: 08:30:00 AM Corrina Castillo [facility] 13:13:30 Dysfunct ional uterine bleeding Completed 201304/12/2021 Unspecifi ed disorders of menstruat ion and other abnormal bleeding from female genital tract;Rec orded Elsewhere : No Locati on: [facility] So urce: EHR Chron ic: N Practic e ID: 0001 Bill able Time: 10:45:00 AM Corrina Castillo [facility] 13:13:13 Anxiety state [id number] Completed 201404/12/2021 Anxiety state, unspecifi ed;Record ed Elsewhere : No Locati on: [facility] So urce: EHR Chron ic: N Practic e ID: 0001 Bill able Time: 01:15:00 PM Corrina Castillo [facility] 13:13:06 Acute vaginiti s [id number] Completed 201504/12/2021 Acute vulvovagi nitis;Rec orded Elsewhere : No Locati on: [facility] So urce: EHR Chron ic: N Practic e ID: 0001 Bill able Time: 11:30:00 AM Corrina Castillo [facility] 13:13:01 Alopecia [id number] Completed 201404/12/2021 Hair loss;Pilo rded Elsewhere : No Locati on: [facility] So urce: EHR Chron ic: N Practic e ID: 0001 Bill able Time: 11:30:00 AM Corrina Castillo [facility] 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 1 13:13:18 Contrace ptive sheath status [id number] Completed 201804/12/2021 Encounter for routine checking of IUD;Recor ded Elsewhere : No Locati on: [facility] So urce: EHR Chron ic: N Practic e ID: 0001 Bill able Time: 03:15:00 PM Corrina Castillo [facility] 1 13:13:09 Abdomina l pain [id number] Completed 201604/12/2021 Abdominal pain;Pilo rded Elsewhere : No Locati on: [facility] So urce: EHR Chron ic: N Practic e ID: 0001 Bill able Time: 04:15:00 PM Corrina Castillo [facility] 13:13:00 Female genital organ symptoms [id number] Completed 201304/12/2021 Pelvic pain;Pilo rded Elsewhere : No Locati on: [facility] So urce: EHR Chron ic: N Practic e ID: 0001 Bill able Time: 10:45:00 AM Corrina Castillo [facility] 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 13:13:08 Vaginola bial hernia Completed 201704/12/2021 Other specified noninflam matory disorders of vagina;Re corded Elsewhere : No Locati on: [facility] So urce: EHR Chron ic: N Practic e ID: 0001 Bill able Time: 04:15:00 PM Corrina bennett [facility] 13:13:39 Poor growth affectin g manageme nt [id number] Completed 201304/12/2021 Poor growth, affecting managemen t of mother, antepartu m condition or complicat ion;Recor ded Elsewhere : No Locati on: [facility] So urce: EHR Chron ic: N Practic e ID: 0001 Bill able Time: 05:15:00 PM [facility] 13:13:22 Postpart um care Completed 201304/12/2021 Post Followup; Recorded Elsewhere : No Locati on: [facility] So urce: EHR Chron ic: N Practic e ID: 0001 Bill able Time: 03:00:00 PM Corrina bennett [facility] 13:13:24 Insertio n of intraute rine contrace ptive device Completed 201304/12/2021 INSERTION OF IUD;Pract ice ID: 0001 Corrina Castillo [facility] 13:13:19 Venereal disease screenin g Completed 201304/12/2021 Screening examinati on for venereal disease;P ractice ID: 0001 Corrina Castillo [facility] 13:13:42 Speciali zed medical examinat ion Completed 201304/12/2021 Routine gynecolog ical examinati on;Practi ce ID: 0001 Corrina Castillo [facility] 13:13:35 Educatio n Completed 201304/12/2021 Counselin g rao tive managemen t;Practic e ID: 0001 Corrina Castillo [facility] 13:13:14 Adult health examinat ion Completed 201304/12/2021 Routine general medical examinati on at a health care facility; Practice ID: 0001 Corrina Castillo [facility] 1 13:13:03 Replacem ent of intraute rine contrace ptive device Completed 201804/12/2021 Encntr for removal and reinserti on of uterin contracep dev;Pract ice ID: 0001 Corrina Castillo [facility] 13:13:27 Delivery normal [id number] Completed 201304/12/2021 Normal delivery; Practice ID: 0001 Corrina [facility] 1 13:13:11 Single live [id number] Completed 201304/12/2021 Mother with single liveborn; Practice ID: 0001 Corrina [facility] 13:13:31 Problem Notes None recorded. Procedures Surgical History Date Name Laterality Status Provider Name and Address Organization Details Recorded Time 2 Date of Last Mammogram completed [facility] 07/18/2022 14:52:56 1 Date of Last Pap Smear completed [facility] 07/18/2022 14:52:36 insertion of stent into iliac vein completed KELLI Christianson [address], [place], [address], [facility] 05/22/2024 16:07:59 Hernia repair w/mesh completed Lidia Brown [facility] 05/22/2024 15:32:40 Imaging Results Imaging Date Name Status LastModified by Organiz ation Details LastModified Time 05/24/2022 MAMMO, screening, bilateral completed [facility] [address], [place], [address], 05/30/2022 10:27:02 Procedure Notes None recorded. Medical Equipment None Reported. Allergies No known drug allergies Medications Name Sig Start Date Stop Date Status Note LastModified by Organization Details LastModified Time Mirena 21 mcg/24 hr (up to 8 years) 52 mg intrauter ine device Take by intraute rine route. active Not Available Not Available No t Available ibuprofen 800 mg tablet take 1 tablet by oral route 3 times every day with food 05/09 completed Prescrib ed Elsewher e: Yes [facility] By: bobbi carringtonuntlena DateTime : 07/04/20 17 04:15:00 PM Not Available Not Available Not Available fluconazo le 200 mg tablet Take 1 tablet every other day PO x 3 doses. 05/09 completed Not Available Not Available Not Available metronida zole 0.75 % (37.5 mg/5 gram) vaginal gel insert 1 applicat orful by vaginal route every day at bedtime x 5 nights 05/09 completed Not Available Not Available Not Available Diflucan 150 mg tablet take 1 tablet by oral route once 01/08 completed Prescrib ed Elsewher e: No [facility] By: kennedy melendez DateTime : 07/05/20 17 09:36:46 AM Not Available Not Available Not Available folic acid 20 mg capsule 08/11 completed Prescrib ed Elsewher e: Yes Loca tion: [facility] odify By: bobbi rodriguez DateTime : 03/03/20 14 01:30:00 PM Not Available Not Available Not Available clopidogr el 75 mg tablet TAKE 1 TABLET BY MOUTH ONCE DAILY active Not Available Not Available No t Available valacyclo vir 500 mg tablet TAKE 4 TABLETS BY MOUTH AT ONSET ON SYMPTOMS , TAKE 4 MORE 12 HOURS LATER active Not Available Not Available No t Available levothyro xine 75 mcg tablet TAKE 1 TABLET BY MOUTH ONCE DAILY DIRECTED 2024 active Not Available Not Available Not Avai lable amoxicill in 875 mg tablet take 1 tablet by oral route every 12 hours 05/06 completed Prescrib ed Elsewher e: Yes [facility] By: betsyose Hilda ncounter DateTime : 07/04/20 17 04:15:00 PM Not Available Not Available Not Available Synthroid 25 mcg tablet take 1 tablet by oral route every day 01/22 completed Prescrib ed Elsewher e: No Locat ion: [facility] odify By: amenoch Anton ncounter DateTime : 03/17/20 14 02:00:00 PM Not Available Not Available Not Available Flagyl 500 mg tablet take 1 tablet by oral route 2 times every day 01/08 completed Prescrib ed Elsewher e: No Locat ion: [facility] odify By: kennedy Garcia r DateTime : 07/05/20 17 09:36:46 AM Not Available Not Available Not Available sertralin e 25 mg tablet TAKE 1 TABLET BY MOUTH EVERY DAY 05/11 completed Not Available Not Available Not Available Euthyrox 50 mcg tablet Take 1 tablet by mouth once daily 05/22 completed Not Available Not Available Not Available clobetaso l 0.05 % topical ointment APPLY A THIN LAYER TO THE AFFECTED AREA(S) BY TOPICAL ROUTE 2 TIMES PER DAY PRN 05/09 completed Not Available Not Available Not Available sertralin e 50 mg tablet take 1 tablet daily 2024 active Not Available Not Available Not Avai lable iron ER 325 mg (65 mg iron) capsule,e xtended release take 1 Tablet by Oral route 3 times every day 08/11 completed Prescrib ed Elsewher e: Yes Loca tion: [facility] odify By: bobbi Anton ncounter DateTime : 03/03/20 14 01:30:00 PM Not Available Not Available Not Available levothyro xine 04/12 completed Not Available Not Available Not Available ibuprofen 06/03 completed Not Available Not Available Not Available Larry-C DHA 35 mg-1 mg-200 mg capsule take 1 capsule by oral route every day 04/12 completed Prescrib ed Elsewher e: No Locat ion: [facility] odify By: kennedy Garcia r DateTime : 07/01/20 14 09:52:12 AM Not Available Not Available Not Available calcium 760 mg (as citrate)/ 3.5 gram oral granules 04/12 completed Prescrib ed Elsewher e: Yes Loca tion: [facility] odify By: kennedy melendez DateTime : 03/03/20 14 01:30:00 PM Not Available Not Available Not Available 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-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-DH A 28 mg iron-1 mg-200 mg capsule take 1 capsule by oral route every day 01/22 completed Prescrib ed Elsewher e: No Locat ion: [facility] odify By: bobbi rodriguez DateTime : 11/27/19 15 11:21:10 AM Not Available Not Available Not Available One Daily 27 mg iron-800 mcg tablet take 1 tablet by oral route every day 08/11 completed Prescrib ed Elsewher e: Yes Loca tion: [facility] odify By: bobbi rodriguez DateTime : 03/03/20 14 01:30:00 PM Not Available Not Available Not Available Vitals Date Recorded Body height Body mass index (BMI) Body weight Systolic blood pressure Diastolic blood pressure Provider Name and Address Organization Details Last Updated DateTime 05/10/2021 180.34 cm 19 kg/m2 68251.56 g 104 mm[Hg] 67 mm[Hg] [facility] 1 16:14:00 Date Recorded Body height Body mass index (BMI) Body weight Systolic blood pressure Diastolic blood pressure Provider Name and Address Organization Details Last Updated DateTime 05/11/2022 180.34 cm 18.3 kg/m2 47240.6 g 122 mm[Hg] 78 mm[Hg] [facility] 09:45:35 Date Recorded Body height Systolic blood pressure Diastolic blood pressure Provider Name and Address Organization Details Last Updated DateTime 07/18/2022 180.34 cm 102 mm[Hg] 68 mm[Hg] [facility] 07/18/2022 14:52:22 Date Recorded Body height Body mass index (BMI) Body weight Systolic blood pressure Diastolic blood pressure Provider Name and Address Organization Details Last Updated DateTime 05/09/2023 180.34 cm 18.8 kg/m2 76888.97 g 107 mm[Hg] 68 mm[Hg] Rebeca Stef [facility] 3 17:18:45 Date Recorded Body height Body mass index (BMI) Body weight Systolic blood pressure Diastolic blood pressure Provider Name and Address Organization Details Last Updated DateTime 05/22/2024 180.34 cm 18.8 kg/m2 45864.97 g 99 mm[Hg] 65 mm[Hg] Lidia Brown [facility] 4 15:31:37 Social History Question Answer Notes LastModified by Organizat ion Details LastModified Time Tobacco Smoking Status Never Smoker Iza Munoz sabrina, [facility] 06/02/2020 15:51:19 What Is Your Level Of Alcohol Consumption? Occasional Information not available 04/12/2021 Are You Blind Or Do You Have Difficulty Seeing? No Information n ot available 04/12/2021 What Is Your Level Of Caffeine Consumption? Occasional Information not available 04/12/2021 In The 14 Days Before Symptom Onset, Have You Had Close Contact With A Laboratory-confirm ed COVID-19 While That Case Was Ill? No Information n ot available 05/09/2023 In The 14 Days Before Symptom Onset, Have You Had Close Contact With A Person Who Is Under Investigation For COVID-19 While That Person Was Ill? No Information not available 05/09/2023 Have You Been To An Area Known To Be High Risk For COVID-19? No Information not available 05/09/2023 Are You Deaf Or Do You Have Serious Difficulty Hearing? No Information not available 04/12/2021 What Type Of Diet Are You Following? REGULAR Information n ot available 04/12/2021 Do You Use Your Seat Belt Or Car Seat Routinely? Yes Information not available 04/12/2021 Do You Have Smoke And Carbon Monoxide Detectors In Your Home? Yes Information not available 04/12/2021 Do You Feel Stressed (tense, Restless, Nervous, Or Anxious, Or Unable To Sleep At Night)? [id number] Information not available 04/12/2021 Do You Use Any Illicit Or Recreational Drugs? No Information not available 04/12/2021 Do You Use Sunscreen Routinely? Yes Information not available 04/12/2021 Sex: Unknown Functional Status Question Answer Note LastModified by Organization D etails LastModified Time Are you able to walk? YESWOREST Information not available 04/12/2021 What is your exercise level? Moderate Information not available 04/12/2021 Mental Status None recorded. Family History Relationship Description Onset Age of this Age Resolved Age Notes LastModified by Organization Details LastModified Time Father Diabetes mellitus [email or web address] Not available 2019 15:51:11 Mother Leukemia [email or web address] Not available 06/02/2020 15:51:18 Medical History Condition Response Allergies (Food, seasonal, environmental ) N Other Y Breast Cancer N Drug/Latex Allergies/Reactions N Blood Transfusion N Dermatologic Disorders N Lung Disease N Defects or Inherited Disease N Breast Problem N Gestational Diabetes N Hematologic disorders N Anesthesia Complications N History of STI N Deep Vein Thrombosis N Polycystic ovary syndrome N Anxiety Disorder N Autoimmune disease N Arthritis N Infertility N Polyps N Acid Reflux (GERD) N History of abnormal pap N Cancer N Stroke N Varicosities N Neurologic/Epilepsy N Endometriosis N High Cholesterol N Headaches N Fibromyalgia N Kidney Disease N Heart Problems N Kidney or Bladder Problems N Thyroid Problems Y GI Problems N Eating Disorder N Anemia N Art (IVF or FET) N Psychiatric Illness N Ovarian Cancer N Diabetes N Pulmonary (TB, Asthma) N Hepatitis/Liver Disease N No Past Medical History N Eczema N Urinary Tract Infection N Abuse/Domestic Violence N Asthma N Trauma/Violence N Depression/ depression N Heart Disease N Pre-Eclampsia N Hypertension N Osteoporosis N Thrombophilias N Gynecological History Statement/Question Response Abnormal Pap N Flow Light Date of Last Mammogram 05/24/2022 Date of LMP 04/28/2024 On BCP's at Conception? N STIs/STDs N Colposcopy Duration of Flow (days) 4 15 Current Control Method IUD Are cycles usually normal Y Date of Last Colonoscopy Sexually Active? Y Menses Monthly Y Date of DEXA bone scan Date of Last Pap Smear 05/10/2021 Sexual Problems? N LMP Approximate Obstetrics History GPAL:G 4 P 2 0 2 2 Type Value Full Term 2 Induced 2 Living 2 Total 4 Past Encounters Encounter ID Performer Location Encounter Start Date Encounter Closed Date Diagnosis/Indication Diagnosis SNOMED-CT Code Diagnosis ICD10 Code Diagnosis Note [id number] Jing Fitzgerald [facility] [address],[facility] [place] [address] 06/03/2020 14:09:12 06/03/2020 14:39:49 Adult health examination 409081291 Z00.00 E03.9 Hx of vitamin D def. On supplement s gustavo D. Will check levels & TSH. Anemia 646010912 D64.9 Hx of anemia on iron & vitamin C. Anxiety 73313429 F41.9 Doing well on zoloft 25mg daily Gynecologi c examination 33170084 Z01.419 Take Calcium with Vitamin D 1200mg daily if not receiving in daily diet. It is strongly advised to have an annual flu shot and up can obtain at most pharmacies . If you have not had a TDap shot in the last 10 years you should obtain one as well. Discussed with patient & provided with informatio n regarding Gardisil vaccine to prevent the 4 strains for HPV that cause cervical cancer if under age 26. Encourage safe sexual practices, to use condoms and limit partners if not already in a monogamous relationsh ip. Do monthly self breast exams. Have mammogram yearly or every other year depending on family history. BRCA testing is now available for patients with strong genetic history of female cancer. If interested contact the office. Engage in daily exercise of low impact aerobic exercise 45-60 minutes 4-5 times weekly. Avoid tobacco and illicit drugs as well as using moderation with alcohol intake less than 1-2 8 oz beverages daily. This lifestyle behavior pattern will lead to less health conditions and longer life span. If BMI greater than 25 weight watchers or dietary consult advised. Patient received above instructio ns, and questions have been answered. If you have any questions please call or respond to this email. Patient was made aware of the patient portal and may obtain a paper copy of today's plan if desired. Check's her own IUD strings. [id number] Jing Fitzgerald [facility] [address] [address] 04/12/2021 15:50:43 04/12/2021 16:47:19 Generalized anxiety disorder 67800704 F41.1 Agreed to trial of Zoloft 50mg.Will RTO x 4wks for med checkAdvis ed taking time for herself as she works, has kids and runs the house as well.Optio n to trial counseling prn Counseled on medication R/B's, Most common side effects, & use. All questions were answered to patient satisfacti on. Counseled on r/b's, most common side effects of this therapy with instructio ns to stop medication with any significan t abnormal change in mood especially with thoughts of suicide/se lf-harm/devine rm to others. Understand ing verbalized . Time spent in visit is a total of 15 mins with at least 50% of visit consisting of counseling and review of plan of care.Addit ional precaution luis measures were taken to minimize potential exposure to the Covid-19 virus during this patient s visit, including available hand senior sales associate upon arrive, temperatur e check and being asked a series of screening questions. All staff wore face coverings during this encounter, as well as provided additional cleaning and sanitizing of all surfaces, including countertop s, pens, chairs, door handles, light switches, etc, prior to and following the patient s visit. [id number] Jing Fitzgerald , [facility] [address] [address] 05/10/2021 16:05:42 05/10/2021 16:36:00 Gynecologic examination 40404028 Z01.419 REQUESTED HER WELLNESS VISIT BE CONDUCTED TODAY. Take Calcium with Vitamin D 1200mg daily if not receiving in daily diet. It is strongly advised to have an annual flu shot and up can obtain at most pharmacies . If you have not had a TDap shot in the last 10 years you should obtain one as well. Discussed with patient & provided with informatio n regarding Gardisil vaccine to prevent the 4 strains for HPV that cause cervical cancer if under age 26. Encourage safe sexual practices, to use condoms and limit partners if not already in a monogamous relationsh ip. Do monthly self breast exams. Have mammogram yearly or every other year depending on family history. BRCA testing is now available for patients with strong genetic history of female cancer. If interested contact the office. Engage in daily exercise of low impact aerobic exercise 45-60 minutes 4-5 times weekly. Avoid tobacco and illicit drugs as well as using moderation with alcohol intake less than 1-2 8 oz beverages daily. This lifestyle behavior pattern will lead to less health conditions and longer life span. If BMI greater than 25 weight watchers or dietary consult advised. Patient received above instructio ns, and questions have been answered. If you have any questions please call or respond to this email. Patient was made aware of the patient portal and may obtain a paper copy of today's plan if desired. Check's her own IUD strings.Pa p/hpv updatedSTD declined Screening for malignant neoplasm of breast 059703186 Z12.39 Adult heal th examination 004833116 Z00.00 E03.9 Hx of vitamin D def. On supplement s gustavo D.Hx of anemiaRout ine adult panel orderedWil l return fasting Generalize d anxiety disorder 13306895 F41.1 Doing VERY well on Zoloft 50mg daily.Feel s very steady & even. Stat es, I haven't yelled once in weeks since we started the 50mg. Neg suicidal thoughts/i deations of self harmDoing more for herself (walks, pedicures etc).Wishe s to continue. Counseled on r/b's, most common side effects of this therapy with instructio ns to stop medication with any significan t abnormal change in mood especially with thoughts of suicide/se lf-harm/devine rm to others. Understand ing verbalized . [id number] KELL[facility] [address] [address] 05/11/2022 09:28:14 05/11/2022 10:54:52 Gynecologic examination 54581741 Z01.419 Z11.51 Take Calcium with Vitamin D 1200mg daily if not receiving in daily diet. It is strongly advised to have an annual flu shot and up can obtain at most pharmacies . If you have not had a TDap shot in the last 10 years you should obtain one as well. Discussed with patient & provided with informatio n regarding Gardisil vaccine to prevent the 4 strains for HPV that cause cervical cancer if under age 26. Encourage safe sexual practices, to use condoms and limit partners if not already in a monogamous relationsh ip. Do monthly self breast exams. Have mammogram yearly or every other year depending on family history. BRCA testing is now available for patients with strong genetic history of female cancer. If interested contact the office. Engage in daily exercise of low impact aerobic exercise 45-60 minutes 4-5 times weekly. Avoid tobacco and illicit drugs as well as using moderation with alcohol intake less than 1-2 8 oz beverages daily. This lifestyle behavior pattern will lead to less health conditions and longer life span. If BMI greater than 25 weight watchers or dietary consult advised. Patient received above instructio ns, and questions have been answered. If you have any questions please call or respond to this email. Patient was made aware of the patient portal and may obtain a paper copy of today's plan if desired. Pap/hpv due 2023 unless otherwise indicatedS TD Screen declinedGe netic Screen discussedC olon Screen naDexa Screen naRoutine Labs orderedMam mo orderedA Mirena IUD prevents for up to 7 years, and also helps with heavy periods for up to 5 years in women who choose an IUD for control. Checks her own strings. Adult heal th examination 909870535 Z00.00 E03.9 E56.9 Hx of vitamin D def. On supplement s gustavo D.Hx of anemiaRout ine adult panel ordered Vitamin D deficiency 347 53179 E55.9 Supplement s gustavo DWill check levels are staying appropriat e [place] of right breast [id number] 1624154 Z12.39 Generalize d anxiety disorder 88874831 F41.1 Doing VERY well on Zoloft 50mg daily.Neg suicidal thoughts/i deations of self harm Counseled on r/b's, most common side effects of this therapy with instructio ns to stop medication with any significan t abnormal change in mood especially with thoughts of suicide/se lf-harm/devine rm to others. Understand ing verbalized . [id number] KELLI [facility] [address] [address] 07/18/2022 14:38:44 07/18/2022 16:20:17 Vaginitis 37219186 N76.0 Suspect yeast/bv on examRx sent Counseled on medication R/B's, Most common side effects, & use. All questions were answered to patient satisfacti on. Time spent in visit is a total of 15 mins with at least 50% of visit consisting of counseling and review of plan of care. Itching of skin 12154430 0 L29.9 Poison oak exposure from yard workArms onlyF/U PCP or urgent care if sx's worsen or persist. [id number] KELLI [facility] [address] [address] 05/09/2023 17:13:38 05/09/2023 17:40:11 Gynecologic examination 67996505 Z01.419 Suggested Calcium with Vitamin D 1200-1500m g daily. Patient advised to get an annual flu shot in the fall and she could obtain at [facility] or [facility] care clinic. Also to obtain TDap vaccinatio n if you have not had one in the last 10 years. Recommend yearly mammograms . Encouraged monthly self breast exams. Encourage safe sexual practices, to use condoms and limit partners if not already in a monogamous relationsh ip. Engage in daily exercise of low impact aerobic exercise 45-60 minutes 4-5 times weekly. Avoid tobacco and illicit drugs as well as using moderation with alcohol intake less than 1-2 8 oz beverages daily. This lifestyle behavior pattern will lead to less health conditions and longer life span. If BMI greater than 25 weight watchers or dietary consult advised. All questions have been answered. Patient appears to understand informatio n, but if you have any questions please call or respond to this email. [facility] - Mirena IUD, inserted 06/06/19hap py with IUD, expires 06/06/2027( +) IUD strings noted on examno hx of abnormal papspap updatedSTI testing declinedri ght breast lump at 7 oclock, diagnostic imaging orderedreq uest comprehens joyce fasting labs - ordered Adult heal th examination 588969322 Z00.00 Breast lump 96210843 N63 .0 [id number] KELLI [facility] [address] [address] 05/22/2024 15:26:11 05/22/2024 16:23:10 Gynecologic examination 42054126 Z01.419 Z11.51 [facility] - Mirena IUD, inserted 06/06/2019 (will 06/06/2027) pap updateddec lined STI screenmamm ogram order givenUTD with PCP Patient advised to get an annual flu shot in the fall which she can obtain at local pharmacy. Also to obtain TDap vaccinatio n if you have not had one in the last 10 years. Recommend yearly mammograms . Encouraged monthly self breast exams. Encourage safe sexual practices, to use condoms and limit partners if not already in a monogamous relationsh ip. Engage in regular exercise. Avoid tobacco and illicit drugs. This lifestyle behavior pattern will lead to less health conditions and longer life span. If BMI greater than 25 dietary consult advised. All questions have been answered. . Screening for malignant neoplasm of breast 784254759 Z12.39 Adult heal th examination 718851789 Z00.00 prefers fasting labs to be done at our lab as is it closer to homediscus sed she will need to f/u with PCP on result Health Concerns Section Related Observation LastModified by Organization Detai ls LastModified Time None Recorded Concern Status LastModified by Organization Details LastModified Time None Recorded Advance Directives Directive None Recorded Payers Encounter Date Sequence Insurance Name Policy Number Policy Kramer Covered Member ID Kramer Member ID Guarantor Name 05/10/2021 1 [facility] ON OR AFTER 04/14/21 (MEDICAID REPLACEMENT - HMO) Leilani Mark [id number] 05/11/2022 1 [facility] ON OR AFTER 04/14/21 (MEDICAID REPLACEMENT - HMO) Leilani Makr [id number] 07/18/2022 1 [facility] ON OR AFTER 04/14/21 (MEDICAID REPLACEMENT - HMO) Leilani Mark [id number] 05/09/2023 1 [facility] ON OR AFTER 04/14/21 (MEDICAID REPLACEMENT - HMO) Leilani Mark [id number] 05/22/2024 1 [facility] ON OR AFTER 04/14/21 (MEDICAID REPLACEMENT - HMO) Leilani Mark [id number] Notes Date Note Type Note Provider Name and Address Organization Details Recorded Time 05/10/2021 text/html Annual GYNReport ed bypatient.History:no gynecologic complaints Menstrual cycle:Normal menses (Amenorrheic on IUD) Urinary symptoms:No hematuria; No incontinence Vulva:No genital lesion Vagina:Normal vaginal discharge Breast:No breast pain; No breast lump; No nipple discharge Current Contraception:Satisf ied with current contraception; Monogamous relationship; Intrauterine device (iud) Sexual complaints:No sexual complaints; No pain during intercourse; Normal libido Menopausal Symptoms:No menopausal symptoms; Normal vaginal lubrication Psychological symptoms:No depression; No anxiety; No PMDD Preventive measures:Encourage self breast examination; Encourage regular exercise; Encourage no tobacco use; Encourage regular mammograms starting age 40; Followed with Q3 year pap smear and high risk HPV typing; Needs to schedule mammogram [facility] [address], [place], [address], [facility] 05/10/2021 16:34:40 05/11/2022 text/html Annual GYNReport ed bypatient.Menstrual cycle:Normal menses Urinary symptoms:No hematuria; No incontinence Vulva:No genital lesion Vagina:Normal vaginal discharge Breast:No breast pain; No nipple discharge;Breast lump(right side) Current Contraception:Satisf ied with current contraception; Intrauterine device (iud) Sexual complaints:No sexual complaints; No pain during intercourse; Normal libido Menopausal Symptoms:No menopausal symptoms; Normal vaginal lubrication Psychological symptoms:No depression; No anxiety; No PMDD Preventive measures:Encourage self breast examination; Encourage regular exercise; Encourage no tobacco use; Encourage regular mammograms starting age 40; Followed with yearly pap smears [facility] [address], [place], [address], [facility] 05/11/2022 10:49:34 07/18/2022 text/html Vaginal/Vulvar ProblemReported bypatient.Location:[facility] Onset/Timing:occurs after menses; abrupt Duration:present for 1-7 days Quality:itching (+d/c with foul odor) Context:sexually active (Monogamous); history of recurrent vaginal infections (Not for 2yrs) Alleviating Factors:none Aggravating Factors:none Associated Symptoms:no vaginal pain; no vulvar itching/irritation; no vulvar swelling/erythema; no vulvar pain; no vulvar lesions; no pelvic pain; no dyspareunia; no dysuria; no fever; no abdominal pain;vaginal itching;vaginal irritation KELLI [facility]- [address], [place], [address], [facility] 07/18/2022 15:31:28 05/09/2023 text/html Annual GYNReport ed bypatient.Menstrual cycle:Normal menses Urinary symptoms:No hematuria; No incontinence Vulva:No genital lesion Vagina:Normal vaginal discharge Breast:No breast pain; No breast lump; No nipple discharge Current Contraception:Satisf ied with current contraception; Intrauterine device (iud) Sexual complaints:No sexual complaints; No pain during intercourse; Normal libido Menopausal Symptoms:No menopausal symptoms; Normal vaginal lubrication Psychological symptoms:No depression; No anxiety; No PMDD Preventive measures:Encourage self breast examination; Encourage regular exercise; Encourage no tobacco use; Encourage regular mammograms starting age 40 KELLI Christianson [address], [place], [address], [facility] 05/09/2023 17:38:50 05/22/2024 text/html Annual GYNReport ed bypatient.Menstrual cycle:Normal menses Urinary symptoms:No hematuria; No incontinence Vulva:No genital lesion Vagina:Normal vaginal discharge Breast:No breast pain; No breast lump; No nipple discharge Current Contraception:Satisf ied with current contraception; Intrauterine device (iud); Mirena IUD, inserted 06/06/2019 Sexual complaints:No sexual complaints; No pain during intercourse; Normal libido Menopausal Symptoms:No menopausal symptoms; Normal vaginal lubrication Psychological symptoms:No depression; No anxiety; No PMDD Preventive measures:Encourage self breast examination; Encourage regular exercise; Encourage no tobacco use; Encourage regular mammograms starting age 40Notes:[facility] - Mirena IUD, inserted 06/06/2019 (will 06/06/2027)last pap 04/2023 : nilm, HPV (-) mammogram - scheduledUTD with PCP KELLI Christianson [address], [place], [address], [place] [facility] 05/22/2024 16:16:44 OBGyn Episode Ob Episode Information Episode Created Date Number of Fetuses Patient Bloodtype Patient rh Status Prepregnancy Weight lbs Domestic Partner Domestic Partner Phone Father Name [employer] Status 04/12/20 21 1 CLOSED Fetus Data First Name Last Name Admitted to NICU Weight (g) Sex Living Outcome Pediatric Complications Fetus ID Race Codes Race Delivery Type , Induced [id number] Bon Calculation Initial Bon Date Initial Exam Date Initial Exam Provider Initial Ultrasound Date Last Menstrual Period Date Ultra Sound Weeks Gestation 0 Eighteen To Twenty Week Bon Update Ultra Sound Date Fundal Height At Umbil Quickening Date Ultra Sound Latest Weeks Gestation Final Bon Confirmed By Final Bon Confirmed Date Final Bon Date Ultra Sound Latest Days Gestation 0 0 Menstrual History Last Menstrual Date Menses Monthly On Bcp Conception Prior Menses Frequency Hcg Plus Date Menarche Onset Age Delivery Information Delivery Date Delivery Type Labor Anesthesia Weeks Gestation Incision Type Labor Labor Length Hrs Delivered By Post Complications Tubal Sterilization Discharge Date Comments 7 Discharge Information Feeding Method Contraceptive Method Maternal HG B and HCT Levels Ob Episode Information Episode Created Date Number of Fetuses Patient Bloodtype Patient rh Status Prepregnancy Weight lbs Domestic Partner Domestic Partner Phone Father Name [employer] Status 04/12/20 21 1 CLOSED Fetus Data First Name Last Name Admitted to NICU Weight (g) Sex Living Outcome Pediatric Complications Fetus ID Race Codes Race Delivery Type 3486.76 1704 F Full Term [id number] Vaginal Delivery Bon Calculation Initial Bon Date Initial Exam Date Initial Exam Provider Initial Ultrasound Date Last Menstrual Period Date Ultra Sound Weeks Gestation 0 Eighteen To Twenty Week Bon Update Ultra Sound Date Fundal Height At Umbil Quickening Date Ultra Sound Latest Weeks Gestation Final Bon Confirmed By Final Bon Confirmed Date Final Bon Date Ultra Sound Latest Days Gestation 0 0 Menstrual History Last Menstrual Date Menses Monthly On Bcp Conception Prior Menses Frequency Hcg Plus Date Menarche Onset Age Delivery Information Delivery Date Delivery Type Labor Anesthesia Weeks Gestation Incision Type Labor Labor Length Hrs Delivered By Post Complications Tubal Sterilization Discharge Date Comments 2 40 Discharge Information Feeding Method Contraceptive Method Maternal HG B and HCT Levels Ob Episode Information Episode Created Date Number of Fetuses Patient Bloodtype Patient rh Status Prepregnancy Weight lbs Domestic Partner Domestic Partner Phone Father Name [employer] Status 04/12/20 21 1 CLOSED Fetus Data First Name Last Name Admitted to NICU Weight (g) Sex Living Outcome Pediatric Complications Fetus ID Race Codes Race Delivery Type , Spontane ous [id number] Bon Calculation Initial Bon Date Initial Exam Date Initial Exam Provider Initial Ultrasound Date Last Menstrual Period Date Ultra Sound Weeks Gestation 0 Eighteen To Twenty Week Bon Update Ultra Sound Date Fundal Height At Umbil Quickening Date Ultra Sound Latest Weeks Gestation Final Bon Confirmed By Final Bon Confirmed Date Final Bon Date Ultra Sound Latest Days Gestation 0 0 Menstrual History Last Menstrual Date Menses Monthly On Bcp Conception Prior Menses Frequency Hcg Plus Date Menarche Onset Age Delivery Information Delivery Date Delivery Type Labor Anesthesia Weeks Gestation Incision Type Labor Labor Length Hrs Delivered By Post Complications Tubal Sterilization Discharge Date Comments 9 Discharge Information Feeding Method Contraceptive Method Maternal HG B and HCT Levels Ob Episode Information Episode Created Date Number of Fetuses Patient Bloodtype Patient rh Status Prepregnancy Weight lbs Domestic Partner Domestic Partner Phone Father Name [employer] Status 04/12/20 21 1 CLOSED Fetus Data First Name Last Name Admitted to NICU Weight (g) Sex Living Outcome Pediatric Complications Fetus ID Race Codes Race Delivery Type 3997.05 2704 F Full Term [id number] Vaginal Delivery Bon Calculation Initial Bon Date Initial Exam Date Initial Exam Provider Initial Ultrasound Date Last Menstrual Period Date Ultra Sound Weeks Gestation 0 Eighteen To Twenty Week Bon Update Ultra Sound Date Fundal Height At Umbil Quickening Date Ultra Sound Latest Weeks Gestation Final Bon Confirmed By Final Bon Confirmed Date Final Bon Date Ultra Sound Latest Days Gestation 0 0 Menstrual History Last Menstrual Date Menses Monthly On Bcp Conception Prior Menses Frequency Hcg Plus Date Menarche Onset Age Delivery Information Delivery Date Delivery Type Labor Anesthesia Weeks Gestation Incision Type Labor Labor Length Hrs Delivered By Post Complications Tubal Sterilization Discharge Date Comments 4 40.4 Discharge Information Feeding Method Contraceptive Method Maternal HG B and HCT Levels
--- OUTSIDE RECORDS SUMMARY | 2025-01-14 08:59 | XMS_ITS | Referral Summary ---
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 Gender Identity Not on file Sexual Orientation [...] 04/11/2024 9:48 AM CDT Plan of Treatment Not on file Medical Devices Implanted Type Area Home Care Physical Therapist Device Identifier Shelf Expiration Date Model / Serial / Lot [employer] Medical Stent Venous Wall [id number] - [id number] Implanted:Qty: 1 on 04/11/2024 by Noble Sharma MD at [facility] [employer] 01/03/2025 [id number] / / [id number] Insurance [facility] [employer] Advance Directives For more information, please contact: [phone] * Full Code (Latest Code Status on File) Date Activated Date Inactivated Comments 04/11/2024 12:57 PM 04/11/2024 6:47 PM Care Teams Tank Setter Helper Relationship Specialty Start Date End Date Barb Fonseca MD [address] [place] [address] PCP - General Internal Medicine 03/13/24
== END 2025-01-14 08:37 | disposition home or self-care (01) ==
LOC: ANHIMG 08:43
PROVIDERS: PCP Internal Medicine; Visit Provider Internal Medicine
DX: Z12.31 Encounter for screening mammogram for malignant neoplasm of breast (principal)
CPT/HCPCS: 77063; 77067